=== PATIENT | male | born 1955 | race Caucasian/White ===

== ENCOUNTER → 2016-10-01 | Outpatient (CLI) | payer BC, OTHER ==
[2016-10-01 10:24] LABS: ALBUMIN 3.9 GM/DL (3.2-5.2); ALBUMIN/GLOBULIN RATIO 1.34 (1.00-1.93); ALKALINE PHOSPHATASE 125 U/L (45-117); ALT/SGPT 69 U/L (12-78); ANION GAP 10 MEQ/L (8-16); AST/SGOT 19 U/L (15-37); BILIRUBIN,TOTAL 0.9 MG/DL (0.2-1.0); BLOOD UREA NITROGEN 20 MG/DL (7-18); CALCIUM LEVEL 9.1 MG/DL (8.5-10.1); CARBON DIOXIDE LEVEL 25 MEQ/L (21-32); CHLORIDE LEVEL 106 MEQ/L (98-107); CREATININE FOR GFR 1.01 MG/DL (0.70-1.30); GLOMERULAR FILTRATION RATE > 60.0 (>56); GLUCOSE, FASTING 145 MG/DL (70-105); POTASSIUM SERUM 4.4 MEQ/L (3.5-5.1); SODIUM LEVEL 141 MEQ/L (136-145); TOTAL PROTEIN 6.8 GM/DL (6.4-8.2)
== END ==
LOC: M SMT 08:08
PROVIDERS: ATTEND Physician Assistant
DX: E66.09 Other obesity due to excess calories (principal)

== ENCOUNTER → 2016-11-27 | Outpatient (CLI) | payer BC, OTHER ==
--- NOTE | 2016-11-27 16:24 | REP ---
CERVICAL SPINE, SEVEN VIEWS: HISTORY: Right arm numbness. COMPARISON: 08/06/2004 The cervical spine is visualized from C1 to the C6-7 level in the lateral radiographs. There is no acute fracture or subluxation. The C5-6 and C6-7 intervertebral discs are decreased in height consistent with disc degeneration. Osteophytes are presents on C5 and 6. The neural foramina are poorly visualized. IMPRESSION: Degenerative change as described above. Signed by Miguel Holland MD 11/27/2016 04:25 P
== END ==
LOC: M SMT 13:23
PROVIDERS: ATTEND Physician Assistant
DX: M50.122 Cervical disc disorder at C5-C6 level with radiculopathy (principal)

== ENCOUNTER → 2016-12-04 | Outpatient (CLI) | payer BC, OTHER ==
--- NOTE | 2016-12-04 12:59 | REP ---
MR CERVICAL SPINE WITHOUT CONTRAST: HISTORY: Right arm numbness. COMPARISON: 09/12/2004. A disc bulge is present at the C3-4 level. There is moderate effacement of the thecal sac without spinal cord compression. Bilateral uncinate process hypertrophy is present. This produces moderate narrowing of the C3 neural foramina. A disc bulge and small central disc protrusion are present at the C4-5 level. There is moderate effacement of the thecal sac without spinal cord compression. Bilateral uncinate process hypertrophy is present. This produces moderate narrowing of the C4 neural foramina. A disc bulge and mild size left paracentral disc extrusion are present at the C5-6 level. There is mild spinal cord compression. Bilateral uncinate process hypertrophy is present. This produces moderate narrowing of the C5 neural foramina. A disc bulge and right paracentral and intraforaminal disc protrusion are present at the C6-7 level. There is minimal spinal cord compression. Bilateral uncinate process hypertrophy is present. There is moderate narrowing of the C6 neural foramina. There is no other disc bulge or herniation. The remaining neural foramina are patent. The spinal cord is normal in signal intensity. The C3-4 through C6-7 intervertebral discs are decreased in height consistent with disc degeneration. Normal signal intensity is present in the cervical vertebral bodies. IMPRESSION: There is cervical spondylolysis at the C3-4 through C6-7 levels most significant at the C5-6 and C6-7 levels where there is mild and minimal spinal cord compression respectfully. Findings at the C3-4 level , disc protrusion at the C5-6 level and spinal cord compression are new compared to the previous study. Signed by Miguel Holland MD 12/04/2016 01:04 P
== END ==
LOC: M RAD 10:11
PROVIDERS: ATTEND Physician Assistant
DX: M47.892 Other spondylosis, cervical region (principal); M48.02 Spinal stenosis, cervical region; M50.21 Other cervical disc displacement, high cervical region

== ENCOUNTER → 2017-01-01 | Outpatient (CLI) | payer BC, OTHER ==
[2017-01-01 13:46] LABS: ALBUMIN 3.6 GM/DL (3.2-5.2); ALKALINE PHOSPHATASE 98 U/L (45-117); ALT/SGPT 43 U/L (12-78); ANION GAP 6 MEQ/L (8-16); AST/SGOT 15 U/L (15-37); BILIRUBIN,TOTAL 0.7 MG/DL (0.2-1.0); BLOOD UREA NITROGEN 24 MG/DL (7-18); CALCIUM LEVEL 8.9 MG/DL (8.5-10.1); CARBON DIOXIDE LEVEL 26 MEQ/L (21-32); CHLORIDE LEVEL 111 MEQ/L (98-107); CHOLESTEROL LEVEL 146 MG/DL (<200); CREATININE FOR GFR 0.96 MG/DL (0.70-1.30); GLOMERULAR FILTRATION RATE > 60.0 (>56); GLUCOSE, FASTING 120 MG/DL (70-105); POTASSIUM SERUM 4.4 MEQ/L (3.5-5.1); SODIUM LEVEL 143 MEQ/L (136-145); TOTAL PROTEIN 6.6 GM/DL (6.4-8.2); TRIGLYCERIDES LEVEL 66 MG/DL (<150)
[2017-01-01 13:52] LABS: EOS # 0.2 K/mm3 (0.0-0.50); EOS % 3.8 % (0.0-3.0); LARGE UNSTAINED CELL # 0.1 K/mm3 (0.0-0.4); LARGE UNSTAINED CELL % 1.4 % (0.0-4.0); LYMPH # 1.3 K/mm3 (1.5-4.5); LYMPH % 26.7 % (24.0-44.0); MEAN CORPUSCULAR HEMOGLOBIN 29.8 pg (27.0-33.0); MEAN CORPUSCULAR HGB CONC 33.5 g/dl (32.0-36.5); MEAN CORPUSCULAR VOLUME 89.1 fl (80.0-96.0); MONO # 0.2 K/mm3 (0.0-0.8); MONO % 5.2 % (0.0-5.0); NEUTROPHILS # 2.9 K/mm3 (1.8-7.7); NEUTROPHILS % 61.9 % (36.0-66.0); PLATELET COUNT, AUTOMATED 155 k/mm3 (150-450); RED CELL DISTRIBUTION WIDTH 12.7 % (11.5-14.5); WHITE BLOOD COUNT 4.7 K/mm3 (4.0-10.0)
== END ==
LOC: M SMT 08:08
PROVIDERS: ATTEND Family Medicine
DX: Z12.5 Encounter for screening for malignant neoplasm of prostate (principal); E78.00 Pure hypercholesterolemia, unspecified; E11.65 Type 2 diabetes mellitus with hyperglycemia
CPT/HCPCS: 36415; 80053; 80061; 82043; 83036; 85025; G0103

== ENCOUNTER → 2018-05-06 | Outpatient (REF) | payer OTHER | LOC: M LAB REF 17:14 | DX: C44.609 Unspecified malignant neoplasm of skin of left upper limb, including shoulder (principal); C44.40 Unspecified malignant neoplasm of skin of scalp and neck ==

== ENCOUNTER → 2018-10-12 | Outpatient (REF) | payer OTHER | LOC: M SFHCPLAZ 11:07 | PROVIDERS: ATTEND Dermatology | DX: L82.1 Other seborrheic keratosis (principal); L98.8 Other specified disorders of the skin and subcutaneous tissue ==

== ENCOUNTER → 2018-12-09 | Outpatient (CLI) | payer BC, OTHER ==
[~2018-12-09] MED LIST: ASPI81TA26 PO; ATOR40TA75 PO; CARI1TAB7 PO; CARV6.25 PO; DICL13PA TOP; GABA-843 PO; GABA-845 PO; HYDR-2808 PO; JANU100T PO; LOSA50TA88 PO; MEDR4TAB PO; METF500T13 PO; NAPR-885 PO; OXYC1TAB23 PO; PERCOCET PO; TIZA2TAB4 PO; TIZA4TAB4 PO
--- NOTE | 2018-12-26 23:36 | ECWPNPC ---
PATIENT NAME: RAKEL TRACEY : 1955 GENDER: MALE VISIT DATE: 12/09/2018 DISCHARGE DATE: 12/09/18912 VISIT LOCKED DATE TIME: PHYSICIAN: MARLENY PICHARDO MD RESOURCE: MARLENY PICHARDO MD REASON FOR APPOINTMENT 1. LBP/LEG PAIN HISTORY OF PRESENT ILLNESS NEW PATIENT CONSULT: WHEN DID YOUR PAIN FIRST START? . BRIEFLY DESCRIBE HOW YOUR PAIN STARTED? . HOW DOES YOUR PAIN CHANGE WITH TIME? . DOES YOUR PAIN AWAKEN YOU FROM SLEEP? . HOW MANY HOURS OF SLEEP DO YOU NORMALLY GET? . ANY DIAGNOSTIC TESTING? . FACILITY WHERE TESTS WERE DONE? ____. PAIN TREATMENT TREATMENT YES CANCER HAVE YOU EVER HAD ANY TYPE OF CANCER?NO NO. 63 YEAR OLD MALE PATIENT WITH A HISTORY OF CHRONIC LOW BACK AND LEG PAIN. THE PATIENT DESCRIBES THE PAIN ACHING, BURNING, STABBING, SHOOTING, SORE, TENDER, SHARP, AND CONTINUOUS WITH A PAIN SCORE OF 9-10/10 DEPENDING ON PHYSICAL ACTIVITY. THE PATIENT STATES HE HAS BEEN EXPERIENCING THIS PAIN FOR MORE THAN 6 MONTHS, BUT THE PAIN HAS BECOME WORSE OVER THE LAST SEVERAL WEEKS. THE PATIENT SAYS HE IS HAVING DIFFICULTY WALKING, SLEEPING, AND CANNOT WORK DUE TO THE PAIN. THE PATIENT SAYS HE HAS TRIED VARIOUS MEDICATIONS BUT HAS ONLY EXPERIENCED MINIMAL RELIEF. PATIENT DENIES UNEXPLAINABLE WEIGHT LOSS, FEVER, CHILLS, NEW CHANGES ON HIS URINARY OR BOWEL CONTROL. PAIN SCREENING: PATIENT HAS A COMPLAINT OF ACUTE OR CHRONIC PAIN :YES FALL RISK SCREENING: SCREENING : NO FALLS IN THE PAST YEAR. HORTA INVENTORY: QUESTIONNAIRE ASSESSEDTBD SCORE VALUE CALCULATED TBD CURRENT MEDICATIONS TAKING MELOXICAM 15 MG TABLET 1 TABLET ORALLY ONCE A DAY TAKING GABAPENTIN 300 MG CAPSULE DIRECTED ORALLY TAKING METFORMIN HCL ER 500 MG TABLET EXTENDED RELEASE 24 HOUR 2 TABLET WITH EVENING MEAL ORALLY BID TAKING LOSARTAN POTASSIUM 50 MG TABLET 1 TABLET ORALLY ONCE A DAY TAKING ASPIR-81 81 MG TABLET DELAYED RELEASE 1 TABLET ORALLY ONCE A DAY TAKING JANUVIA 100 MG TABLET 1 TABLET ORALLY ONCE A DAY TAKING ATORVASTATIN CALCIUM 40 MG TABLET 1 TABLET ORALLY ONCE A DAY TAKING CARVEDILOL 6.25 MG TABLET ORALLY TWICE DAILY MEDICATION LIST REVIEWED AND RECONCILED WITH THE PATIENT PAST MEDICAL HISTORY DIABETES MELLITUS 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 SURGICAL HISTORY CATARACT FAMILY HISTORY FATHER: MOTHER: SIBLINGS: ALIVE SON(S): ALIVE DAUGHTER(S): ALIVE 6 BROTHER(S) , 4 SISTER(S) - HEALTHY. 1 SON(S) , 2 DAUGHTER(S) - HEALTHY. DENIES ANY FAMILY HX OR PANCREATIC CANCER .MOTHER COLON CANCER , FATHER HEART DISEASE. SOCIAL HISTORY GENERAL: TOBACCO USE ARE YOU A:NONSMOKER OTHERS AT HOME: SPOUSE. HOUSING: OWNS HOME. EDUCATION LEVEL OF EDUCATION:HIGH SCHOOL DIET: NO CONCENTRATED SWEETS.. LANGUAGE LANGUAGES SPOKEN:FILIPINO DOMESTIC VIOLENCE DO YOU FEEL SAFE IN YOUR ENVIRONMENT?YES RECREATIONAL DRUG USE DRUG USE?NO EXERCISE: WALKS VERY ACTIVE BUT NO REGUALR EXERCISE. PAIN CLINIC PFS, CLERGY, PUBLIC HEALTH REFERRALS PFS REFERRAL NEEDED?NO CLERGY REFERRAL NEEDED?NO PUBLIC HEALTH REFERRAL NEEDED?NO WAS THE PROVIDER NOTIFIED OF ANY PERTINENT INFO?NO HAS THE PATIENT BEEN EDUCATED REGARDING HIS/HER PLAN OF CARE?YES HAS THE PATIENT BEEN EDUCATED REGARDING PAIN, THE RISK FOR PAIN, THE IMPORTANCE OF EFFECTIVE PAIN MANAGEMENT, AND THE PAIN ASSESSMENT PROCESS?YES CAFFEINE CAFFEINE USE?NO ADVANCE DIRECTIVE ADVANCE DIRECTIVE DISCUSSED WITH PATIENT:YES OFFERED PRINTED MATERIAL PT DECLINED BUDDHIST BUDDHIST NO PREFERENCE MARITAL STATUS: . 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 HOSPITALIZATION/MAJOR DIAGNOSTIC PROCEDURE KIDNEY STONE 1983 REVIEW OF SYSTEMS REVIEWED BY: PROVIDER: MARLENY PICHARDO MD . CONSTITUTIONAL: ANY CHANGE IN YOUR MEDICAL CONDITION? NEW BACK PAIN DOWN RIGHT LEG . CHILLS NO . FEVER NO . INFECTION: DO YOU HAVE NEW INFECTIONS? NO . DO YOU HAVE HISTORY OF MRSA? NO . MUSCULOSKELETAL: ANY NEW PATTERNS OF PAIN OR NUMBNESS? INCREASED PAIN DOWN RIGHT LEG . SYTEMIC LUPUS NO . GASTROENTEROLOGY: ANY NEW CHANGE IN BOWEL CONTROL? NO . BARRETTS ESOPHAGUS NO . CIRRHOSIS NO . HEPATITIS NO . LIVER FAILURE NO . ACID REFLUX NO . UNEXPLAINED WEIGHT LOSS NO . GENITOURINARY: ANY NEW CHANGE IN BLADDER CONTROL? NO . IS THERE A CHANCE YOU COULD BE ? NO . HEMATOLOGY/LYMPH: DO YOU TAKE ANY BLOOD THINNERS? (FOR EXAMPLE- COUMADIN, PLAVIX, AGGRENOX, PLATEL, PRADAXA, OR XARELTO) NO . WHEN WAS YOUR LAST DOSE? DATE: TIME: . LOW PLATELET COUNT NO . SICKLE CELL DISEASE NO . VON WILLIEBRANDS NO . FACTOR V LEIDEN NO . THALLASEMIA NO . ANEMIA NO . EASY BRUISING NO . NEUROLOGY: HAVE YOU FALLEN IN THE PAST 12 MONTHS? NO . ANY NEW EXTREMITY NUMBNESS OR WEAKNESS? NO . HEAD INJURY NO . DEMENTIA NO . CEREBRAL PALSY NO . MULTIPLE SCLEROSIS NO . DIZZINESS NO . HEADACHE NO . STROKES NO . VERTIGO NO . CARDIOLOGY: DO YOU HAVE A PACEMAKER OR DEFIBRILLATOR? NO . ANGINA NO . HEART ATTACK NO . HEART SURGERY NO . CONGESTIVE HEART FAILURE/FLUID OVERLOAD NO . CHEST PAIN NO . HIGH BLOOD PRESSURE NO . IRREGULAR HEART BEAT NO . RESPIRATORY: HAVE YOU BEEN SICK IN THE PAST WEEK? NO . FEVER NO . FLU LIKE SYMPTOMS? NO . CPAP NO . BYPAP NO . ASTHMA NO . EMPHYSEMA NO . CHRONIC LUNG DISEASES NO . SHORTNESS OF BREATH ON EXERTION NO . DO YOU USE ANY TYPE OF TOBACCO (SMOKE, SMOKELESS, CHEW)? NO . COUGH NO . SNORING NO . INTEGUMENTARY: DO YOU HAVE ANY RASHES OR OPEN SORES? NO . ALLERGIC/IMMUNO: ARE YOU ALLERGIC TO IV DYE? NO . ANY NEW ALLERGIES? NO . PSYCHIATRIC: DO YOU HAVE THOUGHTS OF HURTING YOURSELF OR SOMEONE ELSE? NO . ARE YOU ABUSED, NEGLECTED, OR IN AN UNSAFE ENVIRONMENT? NO . ENDOCRINOLOGY: ARE YOU DIABETIC? YES . THYROID DISORDER NO . OTHER: DO YOU NEED ANY PRESCRIPTIONS? NO . IF YES, PLEASE LIST: ____ . ANY NEW PROBLEMS WITH YOUR MEDICATIONS? NO . WHEN DID YOU LAST EAT? ____ . WHEN DID YOU LAST DRINK? ____ . WHAT DID YOU LAST DRINK? ____ . NAME OF PERSON DRIVING YOU HOME? ____ . DO YOU HAVE ANY OTHER QUESTIONS OR CONCERNS NO . VITAL SIGNS WT 276 LBS, HT 75 IN, BMI 34.49 INDEX, BP 165/78 MM HG, HR 60 /MIN, RR 20 /MIN, TEMP 99.2 F, OXYGEN SAT % 98%, NA INITIALS SC 15:28, REVIEWED BY: KG. EXAMINATION GENERAL EXAMINATION: PATIENT IS ALERT O X 3 AND COOPERATIVE. LUNGS CLEAR, TO AUSCULTATION. HEART: NO MURMURS OR GALLOPS; FACIAL CRANIAL NERVES ARE GROSSLY NORMAL. GOOD SYMMETRY OF FACIAL MUSCLE MOVEMENT. NORMAL VISUAL SHAW. THE PATIENT APPEARS UNCOMFORTABLE AND OFTEN CHANGES HIS POSITION TO FIND A COMFORTABLE POSTURE. ANTALGIC GAIT AND LIMPING FROM THE RIGHT LEG. RIGHT LEG IS WEAKER AT EXTENSION AND FLEXION. STRAIGHT LEG RAISE OF THE RIGHT LEG IS POSITIVE AT 30 DEGREES FOR RADICULOPATHY. MRI OF THE LUMBAR SPINE DONE ON 12/04/2018 SHOWS BULGING DISCS AT L4-L5 AND COMPRESSION AT L4 LEVEL. 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 TRACEY' PAIN MANAGEMENT CASE. DUE TO THE LUMBAR RADICULOPATHY, I WOULD LIKE TO MOVE FORWARD WITH A LUMBAR EPIDURAL STEROID INJECTION AT THIS TIME. PATIENT WOULD LIKE TO MOVE FORWARD WITH IV SEDATION DUE TO DISCOMFORT, PAIN AND ANXIETY ASSOCIATED WITH THE PROCEDURE. WE DISCUSSED THE BENEFITS, RISKS, AND ALTERNATIVES OF THE INJECTION AND THE PATIENT WOULD LIKE TO PROCEED. I WILL INCREASE THE GABAPENTIN TO 3 TABLETS PER DAY TO BE USED LONG-TERM USE. I ALSO WILL PRESCRIBE A SMALL SUPPLY OF SOMA, TORADOL, AND HYDROCODONE TO BE USED UNTIL THE EPIDURAL. ISTOP _#[id number] WAS REVIEWED. I DISCUSSED THE RISKS ASSOCIATED WITH THE USE OF OPIOIDS INCLUDING THE POSSIBLE DEVELOPMENT OF ADDICTION OR TOLERANCE AND THE PATIENT VERBALIZED UNDERSTANDING. THE PATIENT WILL FOLLOW UP IN 3 WEEKS AFTER THE PROCEDURE. INSTRUCTIONS WERE GIVEN, QUESTIONS WERE ANSWERED, PATIENT REPORTS UNDERSTANDING AND AGREES WITH THE PLAN. I, CHARLEEN TOM, DOCUMENTED THE ABOVE INFORMATION ACTING A SCRIBE FOR DR. PICHARDO. I HAVE REVIEWED THE ABOVE DOCUMENT, WRITTEN BY CHARLEEN THOMAS AND I VERIFY THAT IT IS ACCURATE. DEAR DR. KALI PRECIADO, D.O.:THANK YOU FOR YOUR KIND REFERRAL OF MR. TRACEY. IF YOU WANT TO DISCUSS HIS CASE WITH ME PLEASE CALL ME AT THE PAIN CENTER AT [phone]. SINCERELY,[facility]. OTHERS START CARISOPRODOL TABLET, 350 MG, 1 TABLET NEEDED, ORALLY, EVERY 8 HOURS NEEDED MDD3, 7 DAYS, 20, REFILLS 0 START KETOROLAC TROMETHAMINE TABLET, 10 MG, 1 TABLET WITH FOOD OR MILK NEEDED, ORALLY, EVERY 6 HRS MDD4, 5 DAY(S), 20, REFILLS 0 START HYDROCODONE-ACETAMINOPHEN TABLET, 5-300 MG, 1 TABLET NEEDED, ORALLY FOR PAIN, EVERY 12 HRS MDD2, 7 DAYS, 14, REFILLS 0 REFILL GABAPENTIN CAPSULE, 300 MG, DIRECTED, ORALLY FOR PAIN, TID, 30 DAYS, 90, REFILLS 1 NOTES: WHAT IS LUMBAR EPIDURAL INJECTION? MATERIAL WAS PRINTED, REVIEWED AND GIVEN TO PT. EM. PROCEDURE CODES G8427 CURRENT MEDS W/DOSAGES DOCUMENTED G8730 PAIN ASSESS POS TOOL F/U PLAN DOC FA211 ESTABILISHED PATIENT [facility] CHARGE DISPOSITION & COMMUNICATION FOLLOW UP 3 WEEKS ELECTRONICALLY SIGNED BY MARLENY PICHARDO MD, MD ON 12/26/2018 AT 08:03 PM EDT DISCLAIMER : THIS IS A VISIT SUMMARY EXTRACTED FROM THE [employer] CHART. IT IS NOT A COPY OF THE [employer] PROGRESS NOTE. MTDD
== END ==
LOC: M PAIN 15:30
PROVIDERS: ATTEND Anesthesiology
DX: M51.16 Intervertebral disc disorders with radiculopathy, lumbar region (principal); M51.17 Intervertebral disc disorders with radiculopathy, lumbosacral region; G89.29 Other chronic pain; E11.9 Type 2 diabetes mellitus without complications; I10 Essential (primary) hypertension; Z79.84 Long term (current) use of oral hypoglycemic drugs; Z79.82 Long term (current) use of aspirin; Z79.899 Other long term (current) drug therapy

== ENCOUNTER → 2018-12-15 | Outpatient (CLI) | payer BC, OTHER ==
[~2018-12-15] MED LIST changes: +ISOVUE-M 300 61% 15ML VIAL (Q9967) As Ordered ONE; +LIDOCAINE 1% SDV INJ 30 ML VIAL As Ordered ONE; +MIDAZOLAM INJ 2 MG/2 ML VIAL (J2250) As Ordered ONE; +fentaNYL 100 MCG/2 ML INJECTION (J3010) As Ordered ONE; +methylPREDNISolone SUSP 40 MG/ML (DEPO-medrol) VIAL (J1030) As Ordered ONE
--- NOTE | 2018-12-16 09:06 | REP ---
Partial lumbar spine series: Three views . History: Injection procedure for pain. 15 seconds of fluoroscopy time is reported. Findings: A sequence of three fluoroscopically obtained last image hold procedural spot radiographs of the lumbar spine document needle position and contrast injection associated with injection procedure. Electronically Signed by Lul Andre MD 12/16/2018 08:57 A
--- NOTE | 2019-01-01 23:21 | ECWPNPC ---
PATIENT NAME: RAKEL TRACEY : 1955 GENDER: MALE VISIT DATE: 12/15/2018 DISCHARGE DATE: 12/15/181843 VISIT LOCKED DATE TIME: PHYSICIAN: MARLENY PICHARDO MD RESOURCE: MARLENY PICHARDO MD REASON FOR APPOINTMENT 1. LESJ WITH IV SEDATION HISTORY OF PRESENT ILLNESS HISTORY OF PRESENT ILLNESS: PAIN THE PATIENT DESCRIBES THE PAIN... FALL RISK SCREENING: SCREENING :NO FALLS REPORTED IN THE LAST YEAR CURRENT MEDICATIONS TAKING MELOXICAM 15 MG TABLET 1 TABLET ORALLY ONCE A DAY, NOTES: 12/08/18 TAKING METFORMIN HCL ER 500 MG TABLET EXTENDED RELEASE 24 HOUR 2 TABLET WITH EVENING MEAL ORALLY BID, NOTES: 12/14/181899 TAKING LOSARTAN POTASSIUM 50 MG TABLET 1 TABLET ORALLY ONCE A DAY, NOTES: 12/15/18699 TAKING ASPIR-81 81 MG TABLET DELAYED RELEASE 1 TABLET ORALLY ONCE A DAY, NOTES: 12/15/18699 TAKING JANUVIA 100 MG TABLET 1 TABLET ORALLY ONCE A DAY, NOTES: 12/14/181899 TAKING ATORVASTATIN CALCIUM 40 MG TABLET 1 TABLET ORALLY ONCE A DAY, NOTES: 12/14/181899 TAKING CARVEDILOL 6.25 MG TABLET ORALLY TWICE DAILY, NOTES: 12/15/18699 TAKING CARISOPRODOL 350 MG TABLET 1 TABLET NEEDED ORALLY EVERY 8 HOURS NEEDED MDD3, NOTES: 12/13/18 TAKING KETOROLAC TROMETHAMINE 10 MG TABLET 1 TABLET WITH FOOD OR MILK NEEDED ORALLY EVERY 6 HRS MDD4, NOTES: 12/13/18 TAKING HYDROCODONE-ACETAMINOPHEN 5-300 MG TABLET 1 TABLET NEEDED ORALLY FOR PAIN EVERY 12 HRS MDD2, NOTES: 12/15/18 09 TAKING GABAPENTIN 300 MG CAPSULE DIRECTED ORALLY FOR PAIN TID, NOTES: 12/15/18 07 MEDICATION LIST REVIEWED AND RECONCILED WITH THE PATIENT PAST MEDICAL HISTORY DIABETES MELLITUS 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 SURGICAL HISTORY CATARACT FAMILY HISTORY FATHER: MOTHER: SIBLINGS: ALIVE SON(S): ALIVE DAUGHTER(S): ALIVE 6 BROTHER(S) , 4 SISTER(S) - HEALTHY. 1 SON(S) , 2 DAUGHTER(S) - HEALTHY. DENIES ANY FAMILY HX OR PANCREATIC CANCER .MOTHER COLON CANCER , FATHER HEART DISEASE. SOCIAL HISTORY GENERAL: TOBACCO USE ARE YOU A:NONSMOKER OTHERS AT HOME: SPOUSE. HOUSING: OWNS HOME. EDUCATION LEVEL OF EDUCATION:HIGH SCHOOL DIET: NO CONCENTRATED SWEETS.. LANGUAGE LANGUAGES SPOKEN:GEORGIAN DOMESTIC VIOLENCE DO YOU FEEL SAFE IN YOUR ENVIRONMENT?YES RECREATIONAL DRUG USE DRUG USE?NO EXERCISE: WALKS VERY ACTIVE BUT NO REGUALR EXERCISE. PAIN CLINIC PFS, CLERGY, PUBLIC HEALTH REFERRALS PFS REFERRAL NEEDED?NO CLERGY REFERRAL NEEDED?NO PUBLIC HEALTH REFERRAL NEEDED?NO WAS THE PROVIDER NOTIFIED OF ANY PERTINENT INFO?NO HAS THE PATIENT BEEN EDUCATED REGARDING HIS/HER PLAN OF CARE?YES HAS THE PATIENT BEEN EDUCATED REGARDING PAIN, THE RISK FOR PAIN, THE IMPORTANCE OF EFFECTIVE PAIN MANAGEMENT, AND THE PAIN ASSESSMENT PROCESS?YES LATEX QUESTIONNAIRE LATEX ALLERGY : HAVE YOU EVER DEVELOPED ANY TYPE OF REACTION AFTER HANDLING LATEX PRODUCTS SUCH RUBBER GLOVES, CONDOMS, DIAPHRAGMS, BALLOONS, SOCKS, OR UNDERWEAR?NO LATEX ALLERGY : HAVE YOU EVER DEVELOPED ANY TYPE OF REACTION DURING OR AFTER DENTAL APPOINTMENT, VAGINAL/RECTAL EXAMINATION, SURGICAL PROCEDURE, OR ANY OTHER EXPOSURE?NO LATEX RISK : HAVE YOU EVER HAD ANY DIFFICULTY BREATHING OR HIVES AFTER EATING OR HANDLING ANY FRUITS, OR VEGETABLES; SUCH KIWI, BANANAS, STONE FRUITS, OR CHESTNUTSNO LATEX RISK : DO YOU HAVE A PREVIOUS PERSONAL HISTORY OF MORE THAN NINE SURGERIES, SPINA BIFIDA, OR REPEATED CATHERTIZATIONS? NO LATEX RISK : ARE YOU FREQUENTLY EXPOSED TO LATEX PRODUCTS IN YOUR OCCUPATION?NO DATE ASKED : 12/15/2018 CAFFEINE CAFFEINE USE?NO ADVANCE DIRECTIVE ADVANCE DIRECTIVE DISCUSSED WITH PATIENT:YES PATIENT DECLINED HCP INFORMATION. VOODOO VOODOO NO PREFERENCE MARITAL STATUS: . ALCOHOL SCREENING DID YOU HAVE A DRINK CONTAINING ALCOHOL IN THE PAST YEAR?YES POINTS1 INTERPRETATIONNEGATIVE HOW OFTEN DID YOU HAVE A DRINK CONTAINING ALCOHOL IN THE PAST YEAR?MONTHLY OR LESS (1 POINT) HOW MANY DRINKS DID YOU HAVE ON A TYPICAL DAY WHEN YOU WERE DRINKING IN THE PAST YEAR?1 OR 2 (0 POINTS) HOW OFTEN DID YOU HAVE SIX OR MORE DRINKS ON ONE OCCASION IN THE PAST YEAR?NEVER (0 POINTS) OCCUPATION: [employer]. REVIEWED WITH PATIENT 12/15/18 9330 JS. HOSPITALIZATION/MAJOR DIAGNOSTIC PROCEDURE KIDNEY STONE 1983 REVIEW OF SYSTEMS REVIEWED BY: PROVIDER: . CONSTITUTIONAL: ANY CHANGE IN YOUR MEDICAL CONDITION? NO . CHILLS NO . FEVER NO . INFECTION: DO YOU HAVE NEW INFECTIONS? NO . DO YOU HAVE HISTORY OF MRSA? NO . MUSCULOSKELETAL: ANY NEW PATTERNS OF PAIN OR NUMBNESS? YES, WORSENING PROGRESSIVELY . GASTROENTEROLOGY: ANY NEW CHANGE IN BOWEL CONTROL? YES, STATES CONSTIPATION, NO BM SINCE LAST THURSDAY . GENITOURINARY: ANY NEW CHANGE IN BLADDER CONTROL? YES, STATES DIFFICULY GOING RECENTLY . IS THERE A CHANCE YOU COULD BE ? NO . HEMATOLOGY/LYMPH: DO YOU TAKE ANY BLOOD THINNERS? (FOR EXAMPLE- COUMADIN, PLAVIX, AGGRENOX, PLATEL, PRADAXA, OR XARELTO) NO . WHEN WAS YOUR LAST DOSE? DATE: TIME: . NEUROLOGY: HAVE YOU FALLEN IN THE PAST 12 MONTHS? NO . ANY NEW EXTREMITY NUMBNESS OR WEAKNESS? YES, STATES NUMBNESS AND WEAKNESS TO RIGHT LEG . CARDIOLOGY: DO YOU HAVE A PACEMAKER OR DEFIBRILLATOR? NO . RESPIRATORY: HAVE YOU BEEN SICK IN THE PAST WEEK? NO . FEVER NO . FLU LIKE SYMPTOMS? NO . COUGH NO . INTEGUMENTARY: DO YOU HAVE ANY RASHES OR OPEN SORES? NO . ALLERGIC/IMMUNO: ARE YOU ALLERGIC TO IV DYE? NO . ANY NEW ALLERGIES? NO . PSYCHIATRIC: DO YOU HAVE THOUGHTS OF HURTING YOURSELF OR SOMEONE ELSE? NO . ARE YOU ABUSED, NEGLECTED, OR IN AN UNSAFE ENVIRONMENT? NO . ENDOCRINOLOGY: ARE YOU DIABETIC? YES, DOES NOT DO FSBS AT HOME . OTHER: DO YOU NEED ANY PRESCRIPTIONS? NO . IF YES, PLEASE LIST: ____ . ANY NEW PROBLEMS WITH YOUR MEDICATIONS? NO . WHEN DID YOU LAST EAT? ____12/15/18 0700 . WHEN DID YOU LAST DRINK? ____12/15/18 0900 . WHAT DID YOU LAST DRINK? ____WATER . NAME OF PERSON DRIVING YOU HOME? ____NELLIE . DO YOU HAVE ANY OTHER QUESTIONS OR CONCERNS YES, STATES THAT THE PAIN MEDS PRESCRIBED ON 12/09 DIDN'T HELP THE PAIN AT ALL. STATES HE CAN'T EVEN WALK AT THIS POINT. DR. PICHARDO MADE AWARE . VITAL SIGNS WT 276 LBS, HT 75 IN, BMI 34.49 INDEX, BP 119/70 MM HG, HR 65 /MIN, RR 20 /MIN, TEMP 98.2 F, OXYGEN SAT % 94%, SAFE IN ENV? (Y/N) YES, NA INITIALS SC 14:09, REVIEWED BY: MIKE. ASSESSMENTS INTERVERTEBRAL DISC DISORDER WITH RADICULOPATHY OF LUMBAR REGION - M51.16 (PRIMARY) TREATMENT INTERVERTEBRAL DISC DISORDER WITH RADICULOPATHY OF LUMBAR REGION REFILL HYDROCODONE-ACETAMINOPHEN TABLET, 5-300 MG, 1 TABLET NEEDED, ORALLY FOR PAIN, EVERY 6 HRS MDD4, 7 DAYS, 28, REFILLS 0, NOTES: 12/15/18 0900 [facility] FLUORO GUIDE SPINE INJECTION (PAIN)[id number] PROCEDURES PRE PROCEDURE DIAGNOSIS LUMBAR DISC DISORDER WITH RADICULOPATHY POST PROCEDURE DIAGNOSIS LUMBAR DISC DISORDER WITH RADICULOPATHY PROCEDURE LUMBAR EPIDURAL STEROID INJECTION UNDER FLUOROSCOPIC GUIDANCE SURGEON DR. MARLENY PICHARDO STEEL CHIPPER NONE ANESTHESIA LOCAL WITH IV SEDATION PRE PROCEDURE NOTE THE PATIENT HAS A HISTORY OF CHRONIC LOW BACK PAIN. I EVALUATE THE PATIENT AND REVIEWED THE CHART. I WENT OVER THE RISKS, ALTERNATIVES, AND BENEFITS ASSOCIATED WITH THIS PROCEDURE. THE PATIENT WOULD LIKE TO PROCEED AND GIVE CONSENT TO PERFORMED THE PROCEDURE. PATIENT WOULD LIKE TO MOVE FORWARD WITH IV SEDATION DUE TO DISCOMFORT, PAIN AND ANXIETY ASSOCIATED WITH THE PROCEDURE. THE PATIENT DENIES UNEXPLAINABLE WEIGHT LOSS, FEVER, CHILLS, OR NEW CHANGES IN URINARY OR BOWEL CONTROL. DESCRIPTION OF PROCEDURE THE PATIENT WAS BROUGHT TO THE PROCEDURE ROOM AND PLACED IN THE PRONE POSITION. THE LUMBOSACRAL AREA WAS CLEANED WITH BETADINE SOLUTION AND DRAPED ASEPTICALLY. THE PROCEDURE WAS DONE UNDER STERILE CONDITIONS. I CHECKED LATERALITY AND THE LEVEL WHERE THE PROCEDURE WAS GOING TO BE PERFORMED WITH THE PATIENT AND THE SUPPORTING STAFF AT THE MOMENT OF THE TIME OUT IN THE PROCEDURE ROOM. UNDER FLUOROSCOPIC GUIDANCE, THE TARGET POINT WAS SELECTED AT THE INTERLAMINAR LEVEL OF L4-L5. LIDOCAINE WAS USED TO NUMB THE SKIN AND THE SUBCUTANEOUS TISSUE BELOW IT. EPIDURAL TUOHY NEEDLE, 17-GAUGE, WAS ADVANCED UNDER FLUOROSCOPIC GUIDANCE AND FOLLOWING PATIENT FEEDBACK UNTIL THE EPIDURAL SPACE WAS REACHED, 7 CM DEEP INTO THE SKIN BY THE LOSS OF RESISTANCE TECHNIQUE. ISOVUE M DYE 30%, 0.25 ML, WAS INJECTED SHOWING ADEQUATE SPREAD OF THE DYE. THEN, A SOLUTION OF 3 ML OF NORMAL SALINE WITH DEPO-MEDROL 60 MG WAS INJECTED SLOWLY FOLLOWING PATIENT FEEDBACK. PATIENT RECEIVED VERSED 2 MG AND FENTANYL 300 MCG IV DIVIDED DOSES. THERE WAS NO EVIDENCE OF BLOOD, PARESTHESIA OR CEREBROSPINAL FLUID DURING THE PROCEDURE. THE PATIENT WAS SENT TO THE RECOVERY ROOM. THE PATIENT WAS MOVING THE EXTREMITIES AND DOING WELL. THERE WAS NO COMPLICATION DURING THE PROCEDURE. FLUOROSCOPY TIME WAS 15 SECONDS. FACE TO FACE WAS 16 MINUTES. POST PROCEDURE NOTE THE PATIENT WILL BE SEEN IN A FOLLOW UP IN THE NEXT FEW WEEKS. INSTRUCTIONS WERE GIVEN, QUESTIONS WERE ANSWERED, AND THE PATIENT EXPRESSED UNDERSTANDING AND AGREES WITH THE PLAN. I, DENEEN CROOK, DOCUMENTED THE ABOVE INFORMATION ACTING A SCRIBE FOR DR. PICHARDO. I HAVE REVIEWED THE ABOVE DOCUMENT, WRITTEN BY DENEEN CROOK SCRIBE AND I VERIFY THAT IT IS ACCURATE. PROCEDURE CODES 6045F RADXPS IN END [id number] PXD [id number] LUMBAR/SACRAL W/ IMAGING 37611 MOD SED SAME PHYS/QHP 5/>YRS DISPOSITION & COMMUNICATION FOLLOW UP 2 WEEKS ELECTRONICALLY SIGNED BY MARLENY PICHARDO MD, MD ON 01/01/2019 AT 04:10 PM EDT DISCLAIMER : THIS IS A VISIT SUMMARY EXTRACTED FROM THE [email or web address] CHART. IT IS NOT A COPY OF THE [email or web address] PROGRESS NOTE. MTDD
== END ==
LOC: M PAIN 14:00
PROVIDERS: ATTEND Anesthesiology
DX: M51.16 Intervertebral disc disorders with radiculopathy, lumbar region (principal); E11.9 Type 2 diabetes mellitus without complications; I10 Essential (primary) hypertension; Z79.84 Long term (current) use of oral hypoglycemic drugs; Z79.82 Long term (current) use of aspirin; Z79.899 Other long term (current) drug therapy; Z86.79 Personal history of other diseases of the circulatory system
CPT/HCPCS: 62323; 99152; J1030; J2250; J3010; Q9967

== ENCOUNTER 2018-12-17 12:41 | Inpatient (IN) | payer BC, OTHER ==
[~2018-12-17] VITALS: Ht 190.5 cm; Wt 117.5 kg
[2018-12-17] MEDS ORDERED: GABA-843 PO (12:47)
[2018-12-17] MEDS ORDERED: HYDR-2808 PO (12:47)
[2018-12-17] MEDS ORDERED: METF500T13 PO (12:47)
[2018-12-17] MEDS ORDERED: ASPI81TA26 PO (12:47)
[2018-12-17] MEDS ORDERED: JANU100T PO (12:47)
[2018-12-17] MEDS ORDERED: CARI1TAB7 PO (12:47)
[2018-12-17] MEDS ORDERED: CARV6.25 PO (12:47)
[2018-12-17] MEDS ORDERED: LOSA50TA88 PO (12:47)
[2018-12-17] MEDS ORDERED: ATOR40TA75 PO (12:47)
[2018-12-17] MEDS ORDERED: PERCOCET 5MG/325MG TAB PO ONE (13:45)
[2018-12-17] MEDS ORDERED: NS 1,000 ML IV ONE (14:15)
[2018-12-17 14:46] LABS: BASO % 0.5 % (0.0-1.0); EOS # 0.1 10^3/uL (0.0-0.50); EOS % 0.8 % (0.0-3.0); HEMATOCRIT 46.1 % (42.0-52.0); HEMOGLOBIN 14.8 g/dl (13.5-17.5); LYMPH # 2.4 10^3/uL (1.5-4.5); LYMPH % 31.8 % (24.0-44.0); MEAN CORPUSCULAR HEMOGLOBIN 28.8 pg (27.0-33.0); MEAN CORPUSCULAR HGB CONC 32.1 g/dl (32.0-36.5); MEAN CORPUSCULAR VOLUME 89.9 fl (80.0-96.0); MONO # 0.6 10^3/uL (0.0-0.8); MONO % 7.4 % (0.0-5.0); NEUTROPHILS # 4.4 10^3/uL (1.8-7.7); NEUTROPHILS % 59.1 % (36.0-66.0); PLATELET COUNT, AUTOMATED 203 10^3/uL (150-450); RED BLOOD COUNT 5.13 10^6/uL (4.30-6.10); WHITE BLOOD COUNT 7.5 10^3/uL (4.0-10.0)
[2018-12-17 15:03] LABS: BLOOD UREA NITROGEN 29 MG/DL (7-18); CALCIUM LEVEL 9.2 MG/DL (8.8-10.2); CARBON DIOXIDE LEVEL 30 MEQ/L (21-32); CHLORIDE LEVEL 104 MEQ/L (98-107); CREATININE FOR GFR 1.14 MG/DL (0.70-1.30); GLOMERULAR FILTRATION RATE > 60.0 (>49); GLUCOSE, FASTING 108 MG/DL (70-100); POTASSIUM SERUM 4.7 MEQ/L (3.5-5.1); SODIUM LEVEL 139 MEQ/L (136-145)
[2018-12-17] MEDS ORDERED: PROHANCE 279.3MG/ML 5ML VIAL (A9576) As Ordered ONE (16:15)
[2018-12-17] MEDS ORDERED: PROHANCE 279.3MG/ML 15ML VIAL (A9576) As Ordered ONE (16:16)
[2018-12-17] MEDS ORDERED: MORPHINE 4 MG/ML 1ML VIAL/SYRINGE (J2270) IV ONE (17:45)
--- NOTE | 2018-12-17 18:20 | REP ---
Emergency lumbar spine MRI study without and with IV gadolinium: History: Right leg pain and weakness. Status post epidural. Incontinence. Comparison lumbar spine MRI study is from December 04, 2018. Intraprocedural spot radiographs from December 15, 2018 demonstrate epidural needle position just to the right of midline at the L4-5 interlaminar level. Technique: Sagittal and axial T1 and T2-weighted scans are acquired in the usual fashion with and without fat saturation. Sequences include spin echo, turbo spin-echo, and STIR imaging sequences. Gadolinium enhancement dose is 20 ml of intravenous ProHance. MRI findings: Lumbar vertebral body heights are maintained. Cortical and medullary bone signal intensity are normal. Alignment is normal and unchanged. Conus medullaris is unremarkable. There is no evidence of epidural hematoma or abscess. There is mild disc bulging at L4-5 again noted. Mild facet hypertrophy is noted bilaterally at L4-5. There is a right foraminal disc protrusion at L4-5 producing nerve root compression. This is unchanged from the comparison MRI study of December 04, 2018. There is some adjacent contrast enhancement in the epidural fat surrounding the nerve root on the right at L4-5 and there is mild enhancement in the interspinous soft tissues at the L4-5 level, but no abnormal fluid collection is seen. Bone signal intensity is normal. The posterior paraspinal soft tissues are otherwise unremarkable. Other disc levels are unchanged. Impression: There is no evidence of epidural hematoma or abscess. Right foraminal L4-5 disc protrusion producing nerve root compression again seen. There is mild contrast enhancement in the epidural fat surrounding this and in the extra spinal soft tissues between the L4 and L5 spinous processes dorsal to the spinal canal. No abnormal fluid collection is seen. Electronically Signed by Lul Andre MD 12/17/2018 08:09 P
[2018-12-17] MEDS ORDERED: GLUCAGON FOR INJ 1 MG VIAL (J1610) SC PRN (18:30)
[2018-12-17] MEDS ORDERED: KETOROLAC 30 MG/ML VIAL (J1885) IV ONE (18:30)
[2018-12-17] MEDS ORDERED: HYDROmorphone HCL 2 MG/ML 1ML VIAL (J1170) IV PRN (18:30)
[2018-12-17] MEDS ORDERED: GLUCOSE 4 GM CHEW TABLET PO PRN (18:30)
[2018-12-17] MEDS ORDERED: DEXTROSE 50% 50 ML SYRINGE IV PRN (18:30)
[2018-12-17] MEDS ORDERED: HYDROMORPHONE HCL 0.5 MG/ 0.5 ML SYRINGE (J1170 PER 1) IV PRN (18:30)
[2018-12-17] MEDS ORDERED: PILL CRUSHER/CUTTER 1 EACH XX PRN (18:45)
[2018-12-17] MEDS ORDERED: ONDANSETRON 4MG/2ML VIAL (J2405) IV PRN (19:15)
--- NOTE | 2018-12-17 19:17 | HPEPDOC ---
General Date of Admission 12/17/18 Chief Complaint The patient is a 63-year-old male admitted with a reason for visit of R Leg Problem. Source: Patient, Family, Old records Exam Limitations: No limitations Severity: Moderate History of Present Illness 63 year old male with diabetes and hypertension has been having right groin, buttock pain radiating down the right leg from the beginning of November. He had a outpateint MRI for this done on 12/04 which showed diffuse disc bulges at L3- 4 and L4-L5 levelswith minimal thecal sac compression. There is compression of the L$ nerve in the neural foramen. There is also diffuse disc bulge at the L5- S1 level . he was diagnosed with Acute lumber radiculopathy. He was started on oral pain meds, muscle relaxsants and gabapentin without any relief so he had an epidural injection done by Dr Lomax on 12/12/18 as an outpateint. However this also did not relief the pain at all. He has been hobbling around and has not been able to stand up straight. the pain is sharp some times burning , sometimes shooting going down his front and medical side of the leg and often his leg is going into spasms. This morning he woke up with his leg bent in a L shape and he could not straighten his leg. He could not get out of bed or bear weight on the leg. He called Dr Lomax and was advised to come to the ED. ED provider contacted Dr Reyes and he advised doubling the oral pain meds if that was not working is suggested IV pain medications. Oral pain med in [facility] ED failed to work so the patient is being admitted to the hospitalist service for pain control. Patient admitted for Acute lumber radiculopathy with intractable pain and inability to ambulate. Home Medications Scheduled Aspirin (Aspirin EC) 81 Mg Tablet., 81 MG PO DAILY, (Reported) Atorvastatin Calcium (Atorvastatin Calcium) 40 Mg Tablet, 40 MG PO QHS, (Repo rted) Carisoprodol (Carisoprodol) 350 Mg Tablet, 350 MG PO Q8H, (Reported) Carvedilol (Carvedilol) 6.25 Mg Tablet, 6.25 MG PO BID, (Reported) Gabapentin (Gabapentin) 300 Mg Capsule, 300 MG PO TID, (Reported) Losartan Potassium (Losartan Potassium) 50 Mg Tablet, 50 MG PO DAILY, (Reported) Metformin HCl (Metformin HCl) 500 Mg Tablet, 500 MG PO BIDWM, (Reported) WITH BREAKFAST AND DINNER Sitagliptin Phosphate (Januvia) 100 Mg Tablet, 100 MG PO DAILY, (Reported) Scheduled PRN Hydrocodone/Acetaminophen (Hydrocodone-Acetamin 5-300 mg) 1 Each Tablet, 1 TAB PO Q6H PRN for PAIN, (Reported) Allergies Coded Allergies: No Known Drug Allergies (Verified Allergy, Unknown, 12/17/18) Past Medical History Medical History Diabetes, hypertension, thoracic Aortic aneurysm found in aug 2018 being monitored. Surgical History cataract surgery, epidural injection Family History Significant Family History: Cancer (mother), Heart disease (father), Other (Dementia monthe, thyroid disease in father) Social History * Smoker: Denies Alcohol: rarely Drugs: denies A-FIB/CHADSVASC A-FIB History Current/History of A-Fib/PAF?: No Review of Systems Constitutional: Denies: Chills, Fever, Night Sweats Eyes: Denies: Pain, Vision change ENT: Denies: Head Aches, Ear Pain, Dysphagia Skin: Denies: Rash, Lesions, Breakdown Pulmonary: Denies: Dyspnea, Cough Cardiovascular: Denies: Chest Pain, Palpitations, Orthopnea, Paroxysmal Noc. Dyspnea, Lt Headedness Gastrointestinal: Denies: Nausea, Vomiting, Abdominal Pain, Diarrhea Genitourinary: Denies: Dysuria, Frequency, Incontinence, Retention Musculoskeletal: Reports: Leg Pain (right), Spasms Neurological: Reports: Weakness (right leg), Numbness (right leg) Psych: Reports: Mood Normal Physical Examination General Exam: Positive: Alert, Cooperative, No Acute Distress Eye Exam: Positive: PERRLA, Conjunctiva & lids normal, EOMI; Negative: Sclera icteric ENT Exam: Positive: Atraumatic, Mucous membr. moist/pink, Pharynx Normal Neck Exam: Positive: Supple; Negative: JVD, thyromegaly Chest Exam: Positive: Clear to auscultation, Normal air movement Heart Exam: Positive: Rate Normal, Regular Rhythm, Normal S1, Normal S2; Negative: Murmurs, Rubs Abdomen Exam: Positive: Normal bowel sounds, Soft; Negative: Tenderness, Hepatospenomegaly Extremity Exam: Positive: Normal pulses; Negative: Clubbing, Cyanosis, Edema Skin Exam: Positive: Nl turgor and temperature; Negative: Breakdown, Lesion Neuro Exam: Positive: Normal Speech, Other (absent DTRs on the right leg, ) Vital Signs Vital Signs Date Time Temp Pulse Resp B/P (MAP) Pulse Ox O2 Delivery O2 Flow Rate FiO2 12/17/18 17:58 20 12/17/18 12:59 12/17/18 12:41 97.0 62 97 Room Air Laboratory Data Labs 24H Laboratory Tests 2 12/17/18 14:22: Immature Granulocyte % (Auto) 0.4, White Blood Count 7.5, Red Blood Count 5.13, Hemoglobin 14.8, Hematocrit 46.1, Mean Corpuscular Volume 89.9, Mean Corpuscular Hemoglobin 28.8, Mean Corpuscular Hemoglobin Concent 32.1, Red Cell Distribution Width 12.9, Platelet Count 203, Neutrophils (%) (Auto) 59.1, Lymphocytes (%) (Auto) 31.8, Monocytes (%) (Auto) 7.4H, Eosinophils (%) (Auto) 0.8, Basophils (%) (Auto) 0.5, Neutrophils # (Auto) 4.4, Lymphocytes # (Auto) 2.4, Monocytes # (Auto) 0.6, Eosinophils # (Auto) 0.1, Basophils # (Auto) 0.0, Nucleated Red Blo od Cells % (auto) 0.0, Anion Gap 5L, Glomerular Filtration Rate > 60.0, Blood Urea Nitrogen 29H, Creatinine 1.14, Sodium Level 139, Potassium Level 4.7, Chloride Level 104, Carbon Dioxide Level 30, Calcium Level 9.2 CBC/BMP Laboratory Tests 12/17/18 14:22 Red Blood Count 5.13, Mean Corpuscular Volume 89.9, Mean Corpuscular Hemoglobin 28.8, Mean Corpuscular Hemoglobin Concent 32.1, Red Cell Distribution Width 12.9, Neutrophils (%) (Auto) 59.1, Lymphocytes (%) (Auto) 31.8, Monocytes (%) (Auto) 7.4 H, Eosinophils (%) (Auto) 0.8, Basophils (%) (Auto) 0.5, Neutrophils # (Auto) 4.4, Lymphocytes # (Auto) 2.4, Monocytes # (Auto) 0.6, Eosinophils # (Auto) 0.1, Basophils # (Auto) 0.0, Calcium Level 9.2 Assessment/Plan 63 year old male with diabetes and hypertension has been having right groin, buttock pain radiating down the right leg from the beginning of November. He had a outpateint MRI for this done on 12/04 which showed diffuse disc bulges at L3- 4 and L4-L5 levelswith minimal thecal sac compression. There is compression of the L$ nerve in the neural foramen. There is also diffuse disc bulge at the L5- S1 level . he was diagnosed with Acute lumber radiculopathy. He was started on oral pain meds, muscle relaxants and gabapentin without any relief so he had an epidural injection done by Dr Lomax on 12/12/18 as an outpateint. However this also did not relief the pain at all. He has been hobbling around and has not been able to stand up straight. the pain is sharp some times burning , sometimes shooting going down his front and medical side of the leg and often his leg is going into spasms. This morning he woke up with his leg bent in a L shape and he could not straighten his leg. He could not get out of bed or bear weight on the leg. He called Dr Lomax and was advised to come to the ED. ED provider contacted Dr Lomax and he advised doubling the oral pain meds if that was not working is suggested IV pain medications. Oral pain med in [facility] ED failed to work so the patient is being admitted to the hospitalist service for pain control. Patient admitted for Acute lumber radiculopathy with intractable pain and inability to ambulate. Acute Lumber Radiculopathy with inability to ambulate. will give Dilaudid in monitored area will give tizanidine, gabapentin and ketorolac. PT after pain is controlled. Diabetes will give lispro as per sliding scale continue januvia Hypertension continue losartan, coreg will continue home meds. Hyperlipidemia on statin. Plan / VTE VTE Prophylaxis Ordered?: Yes JOSIAS PEARCE MD December 17, 2018 18:52
[2018-12-17] MEDS: HumaLOG INSULIN (NovoLOG) PER UNIT SC SCH (21:00)
[2018-12-17] MEDS: CARVedilol 6.25 MG TAB PO SCH (21:00)
[2018-12-17 21:05] VITALS: BP 168/84
[2018-12-17 22:00] VITALS: O2SAT 97
[2018-12-17] MEDS: ATORVASTATIN 20 MG TAB PO SCH (22:03)
[2018-12-17] MEDS: GABAPENTIN 300 MG CAP PO SCH (22:04)
[2018-12-17] MEDS: tiZANidine 4 MG TAB PO SCH (22:04)
[2018-12-17] MEDS: ENOXAPARIN 40 MG/0.4 ML SYRINGE (J1650) SC SCH (22:05)
[2018-12-17] MEDS ORDERED: amLODIPine 5 MG TAB PO ONE (22:15)
[2018-12-17] MEDS: HYDROMORPHONE HCL 0.5 MG/ 0.5 ML SYRINGE (J1170 PER 1) IV PRN (22:38)
[2018-12-17 23:00] VITALS: O2SAT 92
[2018-12-17 23:59] VITALS: BP 141/66
[2018-12-18] VITALS (24 sets, daily range): BP systolic 134–167; BP diastolic 52–93; O2SAT 94–98
[2018-12-18 05:15] LABS: BASO % 0.6 % (0.0-1.0); EOS # 0.1 10^3/uL (0.0-0.50); EOS % 1.3 % (0.0-3.0); HEMATOCRIT 42.4 % (42.0-52.0); HEMOGLOBIN 13.6 g/dl (13.5-17.5); LYMPH # 2.2 10^3/uL (1.5-4.5); MEAN CORPUSCULAR HGB CONC 32.1 g/dl (32.0-36.5); MEAN CORPUSCULAR VOLUME 90.4 fl (80.0-96.0); MONO # 0.6 10^3/uL (0.0-0.8); MONO % 10.2 % (0.0-5.0); NEUTROPHILS # 3.2 10^3/uL (1.8-7.7); NEUTROPHILS % 51.7 % (36.0-66.0); PLATELET COUNT, AUTOMATED 173 10^3/uL (150-450); RED BLOOD COUNT 4.69 10^6/uL (4.30-6.10); WHITE BLOOD COUNT 6.2 10^3/uL (4.0-10.0)
[2018-12-18] MEDS: KETOROLAC 30 MG/ML VIAL (J1885) IV SCH ×3 (05:33→20:49)
[2018-12-18 05:35] LABS: BLOOD UREA NITROGEN 34 MG/DL (7-18); CARBON DIOXIDE LEVEL 27 MEQ/L (21-32); CHLORIDE LEVEL 109 MEQ/L (98-107); CREATININE FOR GFR 1.26 MG/DL (0.70-1.30); GLOMERULAR FILTRATION RATE > 60.0 (>49); GLUCOSE, FASTING 128 MG/DL (70-100); SODIUM LEVEL 142 MEQ/L (136-145)
[2018-12-18] MEDS: tiZANidine 4 MG TAB PO SCH ×3 (08:23→20:48)
[2018-12-18] MEDS: GABAPENTIN 300 MG CAP PO SCH ×3 (08:23→20:48)
[2018-12-18] MEDS: HumaLOG INSULIN (NovoLOG) PER UNIT SC SCH ×4 (08:24→20:13)
[2018-12-18] MEDS: CARVedilol 6.25 MG TAB PO SCH (08:53)
[2018-12-18] MEDS: SITagliptin 50 MG TAB (JANUVIA) PO SCH (08:59)
[2018-12-18] MEDS: HYDROMORPHONE HCL 0.5 MG/ 0.5 ML SYRINGE (J1170 PER 1) IV PRN ×2 (09:01→14:27)
[2018-12-18] MEDS ORDERED: BISACODYL 5 MG TAB PO PRN (16:15)
[2018-12-18] MEDS ORDERED: MOM 30ML SUSPENSION UDC PO PRN (16:15)
--- NOTE | 2018-12-18 16:18 | IPNPDOC ---
Subjective Date Seen The patient was seen on 12/18/18. Subjective Chief Complaint/HPI Severe right lower extremity pain and spasms. Events since last encounter Pateint's pain is much better controlled this am. The current combination of pain meds and muscle relaxants are working well. Discussed with Dr Lomax from pain management will continue on the current regimen , rest over the week end. Today spasms in the leg are less . He is able to straighten out the leg and able to get out of bed and bear a little weight on that leg. He is happy with his pain control. He denies any nausea or vomiting . Denies any confusion, denes any SOB , cough or phlegm, Denies any abdominal pain or diarrhea. Has not had any bowel movement yet. will give stool softeners. Telemetry personally rreviewed. pateint has persistent sinus bradycardia no other events. Objective Physical Examination General Exam: Positive: Alert, Cooperative, No Acute Distress Eye Exam: Positive: PERRLA, Conjunctiva & lids normal, EOMI; Negative: Sclera icteric ENT Exam: Positive: Atraumatic, Mucous membr. moist/pink, Pharynx Normal Neck Exam: Positive: Supple; Negative: JVD, thyromegaly Chest Exam: Positive: Clear to auscultation, Normal air movement Heart Exam: Positive: Rate Normal, Regular Rhythm, Normal S1, Normal S2; Negative: Murmurs, Rubs Abdomen Exam: Positive: Normal bowel sounds, Soft; Negative: Tenderness, Hepatospenomegaly Extremity Exam: Positive: Normal pulses; Negative: Clubbing, Cyanosis, Edema Skin Exam: Positive: Nl turgor and temperature; Negative: Breakdown, Lesion Neuro Exam: Positive: Normal Speech, Normal Tone, Sensation Intact, Other (absent DTRs on the right leg, ) Psych Exam: Positive: Mood NL, Memory Intact, Oriented x 3 Assessment /Plan Assessment 63 year old male with diabetes and hypertension has been having right groin, buttock pain radiating down the right leg from the beginning of November. He had a outpateint MRI for this done on 12/04 which showed diffuse disc bulges at L3- 4 and L4-L5 levelswith minimal thecal sac compression. There is compression of the L$ nerve in the neural foramen. There is also diffuse disc bulge at the L5- S1 level . he was diagnosed with Acute lumber radiculopathy. He was started on oral pain meds, muscle relaxants and gabapentin without any relief so he had an epidural injection done by Dr Lomax on 12/12/18 as an outpateint. However this also did not relief the pain at all. He has been hobbling around and has not been able to stand up straight. the pain is sharp some times burning , sometimes shooting going down his front and medical side of the leg and often his leg is going into spasms. This morning he woke up with his leg bent in a L shape and he could not straighten his leg. He could not get out of bed or bear weight on the leg. He called Dr Lomax and was advised to come to the ED. ED provider contacted Dr Lomax and he advised doubling the oral pain meds if that was not working is suggested IV pain medications. Oral pain med in [facility] ED failed to work so the patient is being admitted to the hospitalist service for pain control. Patient admitted for Acute lumber radiculopathy with intractable pain and inability to ambulate. Acute Lumber Radiculopathy with inability to ambulate. pain much improved today. will continue IV Dilaudid in monitored area 1.6 mg or 1 mg depending on [facility] level of pain every 3 hours as per protocol continue cardiac and respiratory continuos monitoring. COntinue tizanidine, gabapentin and ketorolac. Consulted Dr Lomax from pain management. Spoke to him over the phone he will be available for any issues. He will see the pateint on Thursday. Sinus Bradycardia Asymptomatic noted in Telemetry. lowest 44. Coreg dose reduced and has hold parameters. will possibly discontinue it on discharge if he remains bradycardic Diabetes will give lispro as per sliding scale continue januvia Hypertension will give amlodipine and losartan. Coreg on hold due to bradycardia. Hyperlipidemia on statin. Plan/VTE VTE Prophylaxis Ordered?: Yes VS, I&O, 24H, Fishbone Vital Signs/I&O Vital Signs Date Time Temp Pulse Resp B/P (MAP) Pulse Ox O2 Delivery O2 Flow Rate FiO2 12/18/18 14:37 18 96 12/18/18 13:00 Room Air 12/18/18 12:00 97.4 62 148/52 (84) I&O- Last 24 Hours up to 6 AM 12/18/18 06:00 Intake Total 1000 ml Output Total 0 ml Balance 1000 ml Laboratory Data 24H LABS Laboratory Tests 2 12/17/18 21:41: Bedside Glucose (Misc Panel) 127H 12/18/18 04:54: Immature Granulocyte % (Auto) 0.2, White Blood Count 6.2, Red Blood Count 4.69, Hemoglobin 13.6, Hematocrit 42.4, Mean Corpuscular Volume 90.4, Mean Corpuscular Hemoglobin 29.0, Mean Corpuscular Hemoglobin Concent 32.1, Red Cell Distribution Width 12.9, Platelet Count 173, Neutrophils (%) (Auto) 51.7, Lymphocytes (%) (Auto) 36.0, Monocytes (%) (Auto) 10.2H, Eosinophils (%) (Auto) 1.3, Basophils (%) (Auto) 0.6, Neutrophils # (Auto) 3.2, Lymphocytes # (Auto) 2.2, Monocytes # (Auto) 0.6, Eosinophils # (Auto) 0.1, Basophils # (Auto) 0.0, Nucleated Red Blood Cells % (auto) 0.0, Anion Gap 6L, Glomerular Filtration Rate > 60.0, Blood Urea Nitrogen 34H, Creatinine 1.26, Sodium Level 142, Potassium Level 4.0, Chloride Level 109H, Carbon Dioxide Level 27, Calcium Level 9.0 12/18/18 12:04: Bedside Glucose (Misc Panel) 207H CBC/BMP Laboratory Tests 12/18/18 04:54 Red Blood Count 4.69, Mean Corpuscular Volume 90.4, Mean Corpuscular Hemoglobin 29.0, Mean Corpuscular Hemoglobin Concent 32.1, Red Cell Distribution Width 12.9, Neutrophils (%) (Auto) 51.7, Lymphocytes (%) (Auto) 36.0, Monocytes (%) (Auto) 10.2 H, Eosinophils (%) (Auto) 1.3, Basophils (%) (Auto) 0.6, Neutrophils # (Auto) 3.2, Lymphocytes # (Auto) 2.2, Monocytes # (Auto) 0.6, Eosinophils # (Auto) 0.1, Basophils # (Auto) 0.0, Calcium Level 9.0 JOSIAS PEARCE MD December 18, 2018 16:18
[2018-12-18] MEDS: ENOXAPARIN 40 MG/0.4 ML SYRINGE (J1650) SC SCH (18:23)
[2018-12-18] MEDS: ATORVASTATIN 20 MG TAB PO SCH (20:48)
[2018-12-18] MEDS: SENOKOT S TAB PO SCH (20:49)
[2018-12-18] MEDS: CARVedilol 3.125 MG TAB PO SCH (21:00)
[2018-12-19] VITALS (23 sets, daily range): BP systolic 129–160; BP diastolic 64–86; O2SAT 92–98
[2018-12-19] MEDS: KETOROLAC 30 MG/ML VIAL (J1885) IV SCH ×5 (05:14→23:25)
[2018-12-19 06:22] LABS: BASO % 0.3 % (0.0-1.0); EOS # 0.1 10^3/uL (0.0-0.50); EOS % 2.1 % (0.0-3.0); HEMATOCRIT 42.1 % (42.0-52.0); HEMOGLOBIN 13.7 g/dl (13.5-17.5); LYMPH # 1.9 10^3/uL (1.5-4.5); LYMPH % 29.4 % (24.0-44.0); MEAN CORPUSCULAR HEMOGLOBIN 29.3 pg (27.0-33.0); MEAN CORPUSCULAR HGB CONC 32.5 g/dl (32.0-36.5); MEAN CORPUSCULAR VOLUME 90.1 fl (80.0-96.0); MONO # 0.5 10^3/uL (0.0-0.8); MONO % 7.9 % (0.0-5.0); NEUTROPHILS # 3.8 10^3/uL (1.8-7.7); PLATELET COUNT, AUTOMATED 159 10^3/uL (150-450); RED BLOOD COUNT 4.67 10^6/uL (4.30-6.10); WHITE BLOOD COUNT 6.3 10^3/uL (4.0-10.0)
[2018-12-19] MEDS: HYDROMORPHONE HCL 0.5 MG/ 0.5 ML SYRINGE (J1170 PER 1) IV PRN ×4 (06:33→21:22)
[2018-12-19 06:43] LABS: BLOOD UREA NITROGEN 30 MG/DL (7-18); CARBON DIOXIDE LEVEL 26 MEQ/L (21-32); CHLORIDE LEVEL 109 MEQ/L (98-107); CREATININE FOR GFR 1.02 MG/DL (0.70-1.30); GLOMERULAR FILTRATION RATE > 60.0 (>49); GLUCOSE, FASTING 115 MG/DL (70-100); POTASSIUM SERUM 3.9 MEQ/L (3.5-5.1); SODIUM LEVEL 141 MEQ/L (136-145)
[2018-12-19] MEDS: CARVedilol 3.125 MG TAB PO SCH (09:00)
[2018-12-19] MEDS: SENOKOT S TAB PO SCH ×2 (09:00→20:59)
[2018-12-19] MEDS: SITagliptin 50 MG TAB (JANUVIA) PO SCH (09:26)
[2018-12-19] MEDS: amLODIPine 5 MG TAB PO SCH (09:27)
[2018-12-19] MEDS: tiZANidine 4 MG TAB PO SCH ×3 (09:27→20:58)
[2018-12-19] MEDS: HumaLOG INSULIN (NovoLOG) PER UNIT SC SCH ×4 (09:28→21:00)
[2018-12-19] MEDS: LOSARTAN 50 MG TAB PO SCH (09:28)
[2018-12-19] MEDS: GABAPENTIN 300 MG CAP PO SCH ×3 (09:28→20:58)
[2018-12-19] MEDS ORDERED: PERCOCET 5MG/325MG TAB PO ONE (11:15)
[2018-12-19] MEDS: MIRALAX *UNIT DOSE* 17GM PACKET PO SCH (11:30)
--- NOTE | 2018-12-19 12:00 | IPNPDOC ---
Subjective Date Seen The patient was seen on 12/19/18. Subjective Chief Complaint/HPI Continues to have sharp, burning and shooting pain in the right leg along with muscle spasms. Has not had a bowel movement for 3 days. Have ordered bowel regimen however patient has been refusing it. Objective Physical Examination General Exam: Positive: Alert, Cooperative, No Acute Distress Eye Exam: Positive: PERRLA, Conjunctiva & lids normal, EOMI; Negative: Sclera icteric ENT Exam: Positive: Atraumatic, Mucous membr. moist/pink, Pharynx Normal Neck Exam: Positive: Supple; Negative: JVD, thyromegaly Chest Exam: Positive: Clear to auscultation, Normal air movement Heart Exam: Positive: Rate Normal, Regular Rhythm, Normal S1, Normal S2; Negative: Murmurs, Rubs Abdomen Exam: Positive: Normal bowel sounds, Soft; Negative: Tenderness, Hepatospenomegaly Extremity Exam: Positive: Normal pulses; Negative: Clubbing, Cyanosis, Edema Skin Exam: Positive: Nl turgor and temperature; Negative: Breakdown, Lesion Neuro Exam: Positive: Normal Speech, Normal Tone, Sensation Intact, Other ( absent DTRs on the right leg, ) Psych Exam: Positive: Mood NL, Memory Intact, Oriented x 3 Assessment /Plan Assessment 63 year old male with diabetes and hypertension has been having right groin, buttock pain radiating down the right leg from the beginning of November. He had a outpateint MRI for this done on 12/04 which showed diffuse disc bulges at L3- 4 and L4-L5 levelswith minimal thecal sac compression. There is compression of the L$ nerve in the neural foramen. There is also diffuse disc bulge at the L5- S1 level . he was diagnosed with Acute lumber radiculopathy. He was started on oral pain meds, muscle relaxants and gabapentin without any relief so he had an epidural injection done by Dr Lomax on 12/12/18 as an outpateint. However this also did not relief the pain at all. He has been hobbling around and has not been able to stand up straight. the pain is sharp some times burning , sometimes shooting going down his front and medical side of the leg and often his leg is going into spasms. This morning he woke up with his leg bent in a L shape and he could not straighten his leg. He could not get out of bed or bear weight on the leg. He called Dr Lomax and was advised to come to the ED. ED provider contacted Dr oLmax and he advised doubling the oral pain meds if that was not working is suggested IV pain medications. Oral pain med in [facility] ED failed to work so the patient is being admitted to the hospitalist service for pain control. Patient admitted for Acute lumber radiculopathy with intractable pain and in ability to ambulate. Acute Lumber Radiculopathy with inability to ambulate. Today pain is again not well controlled Requiring dilaudid every 3 to 4 hours. will continue IV Dilaudid in monitored area 1.6 mg or 1 mg depending on thelevel of pain every 3 hours as per protocol continue cardiac and respiratory continuos monitoring. Started perccet. COntinue tizanidine, gabapentin and ketorolac. Consulted Dr Lomax from pain management. Spoke to him over the phone he will be available for any issues. He will see the pateint on Thursday. Sinus Bradycardia Asymptomatic noted in Telemetry. lowest 44. will dc coreg will possibly discontinue it on discharge if he remains bradycardic Diabetes will give lispro as per sliding scale continue januvia Hypertension will give amlodipine and losartan. Coreg on hold due to bradycardia. Hyperlipidemia on statin. Plan/VTE VTE Prophylaxis Ordered?: Yes VS, I&O, 24H, Fishbone Vital Signs/I&O Vital Signs Date Time Temp Pulse Resp B/P (MAP) Pulse Ox O2 Delivery O2 Flow Rate FiO2 12/19/18 11:35 18 12/19/18 09:28 156/82 12/19/18 09:27 54 12/19/18 08:00 98.9 96 12/19/18 05:00 Room Air I&O- Last 24 Hours up to 6 AM 12/19/18 06:00 Intake Total 1380 ml Output Total 1600 ml Balance -220 ml Laboratory Data 24H LABS Laboratory Tests 2 12/18/18 12:04: Bedside Glucose (Misc Panel) 207H 12/18/18 16:28: Bedside Glucose (Misc Panel) 111 12/18/18 20:01: Bedside Glucose (Misc Panel) 112 12/19/18 05:13: Immature Granulocyte % (Auto) 0.3, White Blood Count 6.3, Red Blood Count 4.67, Hemoglobin 13.7, Hematocrit 42.1, Mean Corpuscular Volume 90.1, Mean Corpuscular Hemoglobin 29.3, Mean Corpuscular Hemoglobin Concent 32.5, Red Cell Distribution Width 12.8, Platelet Count 159, Neutrophils (%) (Auto) 60.0, Lymphocytes (%) (Auto) 29.4, Monocytes (%) (Auto) 7.9H, Eosinophils (%) (Auto) 2.1, Basophils (%) (Auto) 0.3, Neutrophils # (Auto) 3.8, Lymphocytes # (Auto) 1.9, Monocytes # (Auto) 0.5, Eosinophils # (Auto) 0.1, Basophils # (Auto) 0.0, Nucleated Red Blood Cells % (auto) 0.0, Anion Gap 6L, Glomerular Filtration Rate > 60.0, Blood Urea Nitrogen 30H, Creatinine 1.02, Sodium Level 141, Potassium Level 3.9, Chloride Level 109H, Carbon Dioxide Level 26, Calcium Level 9.0 CBC/BMP Laboratory Tests 12/19/18 05:13 Red Blood Count 4.67, Mean Corpuscular Volume 90.1, Mean Corpuscular Hemoglobin 29.3, Mean Corpuscular Hemoglobin Concent 32.5, Red Cell Distribution Width 12.8, Neutrophils (%) (Auto) 60.0, Lymphocytes (%) (Auto) 29.4, Monocytes (%) (Auto) 7.9 H, Eosinophils (%) (Auto) 2.1, Basophils (%) (Auto) 0.3, Neutrophils # (Auto) 3.8, Lymphocytes # (Auto) 1.9, Monocytes # (Auto) 0.5, Eosinophils # (Auto) 0.1, Basophils # (Auto) 0.0, Calcium Level 9.0 JSOIAS PEARCE MD December 19, 2018 12:00
[2018-12-19] MEDS: ENOXAPARIN 40 MG/0.4 ML SYRINGE (J1650) SC SCH (18:23)
[2018-12-19] MEDS: ATORVASTATIN 20 MG TAB PO SCH (20:58)
[2018-12-20] VITALS (20 sets, daily range): BP systolic 135–170; BP diastolic 75–85; O2SAT 91–97
[2018-12-20 04:09] LABS: BASO % 0.7 % (0.0-1.0); EOS # 0.2 10^3/uL (0.0-0.50); HEMATOCRIT 40.6 % (42.0-52.0); LYMPH % 36.1 % (24.0-44.0); MEAN CORPUSCULAR VOLUME 90.4 fl (80.0-96.0); MONO # 0.4 10^3/uL (0.0-0.8); MONO % 7.7 % (0.0-5.0); NEUTROPHILS # 2.8 10^3/uL (1.8-7.7); NEUTROPHILS % 51.1 % (36.0-66.0); PLATELET COUNT, AUTOMATED 159 10^3/uL (150-450); RED BLOOD COUNT 4.49 10^6/uL (4.30-6.10); WHITE BLOOD COUNT 5.5 10^3/uL (4.0-10.0)
[2018-12-20 04:29] LABS: BLOOD UREA NITROGEN 36 MG/DL (7-18); CARBON DIOXIDE LEVEL 28 MEQ/L (21-32); CHLORIDE LEVEL 109 MEQ/L (98-107); CREATININE FOR GFR 1.14 MG/DL (0.70-1.30); GLOMERULAR FILTRATION RATE > 60.0 (>49); GLUCOSE, FASTING 125 MG/DL (70-100); POTASSIUM SERUM 4.2 MEQ/L (3.5-5.1); SODIUM LEVEL 143 MEQ/L (136-145)
[2018-12-20] MEDS: KETOROLAC 30 MG/ML VIAL (J1885) IV SCH ×2 (06:17→13:07)
[2018-12-20] MEDS: HumaLOG INSULIN (NovoLOG) PER UNIT SC SCH ×4 (08:33→21:00)
[2018-12-20] MEDS: LOSARTAN 50 MG TAB PO SCH (08:34)
[2018-12-20] MEDS: SENOKOT S TAB PO SCH ×2 (08:34→21:05)
[2018-12-20] MEDS: tiZANidine 4 MG TAB PO SCH ×3 (08:34→21:05)
[2018-12-20] MEDS: SITagliptin 50 MG TAB (JANUVIA) PO SCH (08:34)
[2018-12-20] MEDS: PERCOCET 5MG/325MG TAB PO PRN ×2 (08:35→21:05)
[2018-12-20] MEDS: MIRALAX *UNIT DOSE* 17GM PACKET PO SCH (08:36)
[2018-12-20] MEDS: amLODIPine 5 MG TAB PO SCH (08:36)
[2018-12-20] MEDS: GABAPENTIN 300 MG CAP PO SCH ×3 (08:36→21:04)
--- NOTE | 2018-12-20 12:59 | IPNPDOC ---
Subjective Date Seen The patient was seen on 12/20/18. Subjective Chief Complaint/HPI Pain today appears to be better controlled. He is able to move more. He is not having any muscle spasms today. Had a regular bowel movement this am. No nausea or vomiting , no abdominal pain , no fever or chills Objective Physical Examination General Exam: Positive: Alert, Cooperative, No Acute Distress Eye Exam: Positive: PERRLA, Conjunctiva & lids normal, EOMI; Negative: Sclera icteric ENT Exam: Positive: Atraumatic, Mucous membr. moist/pink, Pharynx Normal Neck Exam: Positive: Supple; Negative: JVD, thyromegaly Chest Exam: Positive: Clear to auscultation, Normal air movement Heart Exam: Positive: Rate Normal, Regular Rhythm, Normal S1, Normal S2; Negative: Murmurs, Rubs Abdomen Exam: Positive: Normal bowel sounds, Soft; Negative: Tenderness, Hepatospenomegaly Extremity Exam: Positive: Normal pulses; Negative: Clubbing, Cyanosis, Edema Skin Exam: Positive: Nl turgor and temperature; Negative: Breakdown, Lesion Neuro Exam: Positive: Normal Speech, Normal Tone, Sensation Intact, Other (absent DTRs on the right leg, ) Psych Exam: Positive: Mood NL, Memory Intact, Oriented x 3 Assessment /Plan Assessment 63 year old male with diabetes and hypertension has been having right groin, buttock pain radiating down the right leg from the beginning of November. He had a outpateint MRI for this done on 12/04 which showed diffuse disc bulges at L3- 4 and L4-L5 levelswith minimal thecal sac compression. There is compression of the L$ nerve in the neural foramen. There is also diffuse disc bulge at the L5- S1 level . he was diagnosed with Acute lumber radiculopathy. He was started on oral pain meds, muscle relaxants and gabapentin without any relief so he had an epidural injection done by Dr Lomax on 12/12/18 as an outpateint. However this also did not relief the pain at all. He has been hobbling around and has not been able to stand up straight. the pain is sharp some times burning , sometimes shooting going down his front and medical side of the leg and often his leg is going into spasms. This morning he woke up with his leg bent in a L shape and he could not straighten his leg. He could not get out of bed or bear weight on the leg. He called Dr Lomax and was advised to come to the ED. ED provider cont acted Dr Lomax and he advised doubling the oral pain meds if that was not working is suggested IV pain medications. Oral pain med in [facility] ED failed to work so the patient is being admitted to the hospitalist service for pain control. Patient admitted for Acute lumber radiculopathy with intractable pain and inability to ambulate. Acute Lumber Radiculopathy with inability to ambulate. Today pain is better controlled with percocet. Did not need any dilaudid overnight. will continue IV Dilaudid in monitored area 1.6 mg or 1 mg depending on thelevel of pain every 3 hours as per protocol continue cardiac and respiratory continuos monitoring. Started perccet. Continue tizanidine, gabapentin and ketorolac. Consulted Dr Lomax from pain management. Spoke to him over the phone he will be available for any issues. He will see the pateint on Thursday. Sinus Bradycardia Asymptomatic noted in Telemetry. lowest 44. will dc coreg Diabetes will give lispro as per sliding scale continue januvia Hypertension will give amlodipine and losartan. Coreg dced due to sinus bradycardia. Hyperlipidemia on statin. Plan/VTE VTE Prophylaxis Ordered?: Yes VS, I&O, 24H, Antoniobone Vital Signs/I&O Vital Signs Date Time Temp Pulse Resp B/P (MAP) Pulse Ox O2 Delivery O2 Flow Rate FiO2 12/20/18 12:00 98.5 54 20 167/85 (112) 97 12/20/18 07:00 Room Air I&O- Last 24 Hours up to 6 AM 12/20/18 06:00 Intake Total 1180 ml Output Total 1500 ml Balance -320 ml Laboratory Data 24H LABS Laboratory Tests 2 12/19/18 16:40: Bedside Glucose (Misc Panel) 132H 12/19/18 21:05: Bedside Glucose (Misc Panel) 126H 12/20/18 03:43: Immature Granulocyte % (Auto) 0.4, White Blood Count 5.5, Red Blood Count 4.49, Hemoglobin 13.0L, Hematocrit 40.6L, Mean Corpuscular Volume 90.4, Mean Corpuscular Hemoglobin 29.0, Mean Corpuscular Hemoglobin Concent 32.0, Red Cell Distribution Width 12.6, Platelet Count 159, Neutrophils (%) (Auto) 51.1, Lymphocytes (%) (Auto) 36.1, Monocytes (%) (Auto) 7.7H, Eosinophils (%) (Auto) 4.0H, Basophils (%) (Auto) 0.7, Neutrophils # (Auto) 2.8, Lymphocytes # (Auto) 2.0, Monocytes # (Auto) 0.4, Eosinophils # (Auto) 0.2, Basophils # (Auto) 0.0, Nucleated Red Blood Cells % (auto) 0.0, Anion Gap 6L, Glomerular Filtration Rate > 60.0, Blood Urea Nitrogen 36H, Creatinine 1.14, Sodium Level 143, Potassium Level 4.2, Chloride Level 109H, Carbon Dioxide Level 28, Calcium Level 9.0 12/20/18 11:38: Bedside Glucose (Misc Panel) 145H CBC/BMP Laboratory Tests 12/20/18 03:43 Red Blood Count 4.49, Mean Corpuscular Volume 90.4, Mean Corpuscular Hemoglobin 29.0, Mean Corpuscular Hemoglobin Concent 32.0, Red Cell Distribution Width 12.6, Neutrophils (%) (Auto) 51.1, Lymphocytes (%) (Auto) 36.1, Monocytes (%) (Auto) 7.7 H, Eosinophils (%) (Auto) 4.0 H, Basophils (%) (Auto) 0.7, Neutrophils # (Auto) 2.8, Lymphocytes # (Auto) 2.0, Monocytes # (Auto) 0.4, Eosinophils # (Auto) 0.2, Basophils # (Auto) 0.0, Calcium Level 9.0 JOSIAS PEARCE MD December 20, 2018 12:59
[2018-12-20] MEDS: ENOXAPARIN 40 MG/0.4 ML SYRINGE (J1650) SC SCH (17:35)
--- NOTE | 2018-12-20 18:08 | CR ---
DATE OF CONSULTATION: 12/20/2018 CHIEF COMPLAINT: Low back pain, right leg pain. HISTORY OF PRESENT ILLNESS: Lex is a 63-year-old gentleman who was admitted on 12/17/2018 for acute low back pain and right leg pain. He began with acute low back pain and right leg pain abruptly in November without precipitating event. He was initially seen at out pain clinic and underwent a lumbar epidural steroid injection on 12/15/2018. Today he is feeling much better. He is able to use Percocet with some relief. He has not had any IV pain medicine for 24 hours. He would like to go home. Dr. Lomax was in to evaluate him with me. It should be noted that I am dictating Dr. Lomax's physical exam at the bedside here today. PHYSICAL EXAM: Awake, alert, pleasant and no acute distress. VITAL SIGNS: 98.5, 54, 20, blood pressure 167/85, Oxygen saturation 97%. CARDIAC: S1, S2 normal rate and rhythm. RESPIRATORY: Lung sounds are clear. Respirations are nonlabored. MUSCULOSKELETAL: Mild weakness noted over right leg compared with left. Straight leg raise is showing mild discomfort right low back at 60 degrees. Ambulating without assistance from sitting to standing. ASSESSMENT: 1. Acute low back pain. 2. Right lumbar radiculopathy. PLAN: Dr. Lomax followed up with Dr. Lema, the attending. The plan is to evaluate for discharge. PT evaluation has been set up. Plans are for discharge either tonight or tomorrow. He will be seeing Dr. Lomax at the pain center in 3 days for reevaluation.
[2018-12-20] MEDS: ATORVASTATIN 20 MG TAB PO SCH (21:05)
[2018-12-21] VITALS (10 sets, daily range): BP systolic 139; BP diastolic 81–84; O2SAT 94–98
[2018-12-21] MEDS: PERCOCET 5MG/325MG TAB PO PRN ×2 (04:16→11:36)
[2018-12-21 05:20] LABS: BASO # 0.1 10^3/uL (0.0-0.2); EOS # 0.3 10^3/uL (0.0-0.50); EOS % 4.2 % (0.0-3.0); HEMOGLOBIN 13.8 g/dl (13.5-17.5); LYMPH # 2.2 10^3/uL (1.5-4.5); LYMPH % 35.9 % (24.0-44.0); MEAN CORPUSCULAR HEMOGLOBIN 28.9 pg (27.0-33.0); MEAN CORPUSCULAR HGB CONC 32.1 g/dl (32.0-36.5); MEAN CORPUSCULAR VOLUME 90.1 fl (80.0-96.0); MONO # 0.5 10^3/uL (0.0-0.8); MONO % 7.3 % (0.0-5.0); NEUTROPHILS # 3.2 10^3/uL (1.8-7.7); NEUTROPHILS % 51.4 % (36.0-66.0); PLATELET COUNT, AUTOMATED 163 10^3/uL (150-450); RED BLOOD COUNT 4.77 10^6/uL (4.30-6.10); WHITE BLOOD COUNT 6.1 10^3/uL (4.0-10.0)
[2018-12-21 05:41] LABS: BLOOD UREA NITROGEN 22 MG/DL (7-18); CALCIUM LEVEL 8.6 MG/DL (8.8-10.2); CARBON DIOXIDE LEVEL 28 MEQ/L (21-32); CHLORIDE LEVEL 108 MEQ/L (98-107); CREATININE FOR GFR 1.03 MG/DL (0.70-1.30); GLOMERULAR FILTRATION RATE > 60.0 (>49); GLUCOSE, FASTING 127 MG/DL (70-100); POTASSIUM SERUM 4.2 MEQ/L (3.5-5.1); SODIUM LEVEL 143 MEQ/L (136-145)
[2018-12-21] MEDS ORDERED: PERCOCET PO (07:01)
[2018-12-21] MEDS ORDERED: LOSA50TA88 PO (07:01)
[2018-12-21] MEDS ORDERED: TIZA4TAB4 PO (07:01)
[2018-12-21] MEDS: HumaLOG INSULIN (NovoLOG) PER UNIT SC SCH ×2 (08:33→11:36)
[2018-12-21] MEDS: tiZANidine 4 MG TAB PO SCH (08:34)
[2018-12-21] MEDS: SITagliptin 50 MG TAB (JANUVIA) PO SCH (08:34)
[2018-12-21] MEDS: GABAPENTIN 300 MG CAP PO SCH (08:34)
[2018-12-21] MEDS: amLODIPine 5 MG TAB PO SCH (08:35)
[2018-12-21] MEDS: SENOKOT S TAB PO SCH (08:35)
[2018-12-21] MEDS: LOSARTAN 50 MG TAB PO SCH (08:35)
[2018-12-21] MEDS: MIRALAX *UNIT DOSE* 17GM PACKET PO SCH (08:36)
[2018-12-21] MEDS ORDERED: NAPR-885 PO (09:36)
[2018-12-21] MEDS ORDERED: IBUPROFEN 800 MG TAB PO ONE (11:00)
--- NOTE | 2018-12-21 23:09 | DS.PDOC ---
Discharge Summary General Date of Admission December 17, 2018 at 18:20 Date of Discharge 12/21/18 Discharge Summary PROCEDURES PERFORMED DURING STAY: [None]. DISCHARGE DIAGNOSES: Acute right lumber radiculopathy Low back pain Diabetes Hypertension Hyperlipidemia Obesity Sinus bradycardia. COMPLICATIONS/CHIEF COMPLAINT: Acute Right Lumbar Radiculopathy. HISTORY OF PRESENT ILLNESS: See history and physical HOSPITAL COURSE: 63 year old male with diabetes and hypertension has been having right groin, buttock pain radiating down the right leg from the beginning of November. He had a outpatient MRI for this done on the 12/04 which showed diffuse disc bulges at L3-4 and L4-L5 levels with minimal thecal sac compression. There is compression of the L4 nerve in the neural foramen. There is also diffuse disc bulge at the L5-S1 level . he was diagnosed with Acute lumber radiculopathy. He was started on oral pain meds, muscle relaxants and gabapentin without any relief so he had an epidural injection done by Dr Lomax on 12/12/18 as an outpatient. However this also did not relief the pain at all. He has been hobbling around and has not been able to stand up straight. the pain is sharp some times burning , sometimes shooting going down his front and medical side of the leg and often his leg is going into spasms. This morning he woke up with his leg bent in a L shape and he could not straighten his leg. He could not get out of bed or bear weight on the leg. He called Dr Lomax and was advised to come to the ED. ED provider contacted Dr Lomax and he advised doubling the oral pain meds if that was not working is suggested IV pain medications. Oral pain med in [facility] ED failed to work so the patient is being admitted to the hospitalist service for pain control. Patient admitted for Acute lumber radiculopathy with intractable pain and inability to ambulate. Acute Lumber Radiculopathy with inability to ambulate. Today pain is better controlled with percocet and ketorolac. After stopping k etorolac pain was starting to bother him and he was having trouble standing up Gave a dose of Motrin which really helped so discharged the pateint with naproxen also Continue tizanidine, gabapentin and ketorolac. Consulted Dr Lomax from pain management. Spoke to him over the phone he will be available for any issues. He will see the pateint on Thursday. Sinus Bradycardia Asymptomatic noted in Telemetry. lowest 44. will dc coreg Diabetes continue januvia and metformin Hypertension will give amlodipine and losartan. Losartan dose increased from 50 to 100 Coreg dced due to sinus bradycardia. Hyperlipidemia on statin. DISCHARGE MEDICATIONS: Please see below. ALLERGIES: Please see below. PHYSICAL EXAMINATION ON DISCHARGE: VITAL SIGNS: Please see below. General Exam: Positive: Alert, Cooperative, No Acute Distress Eye Exam: Positive: PERRLA, Conjunctiva & lids normal, EOMI; Negative: Sclera icteric ENT Exam: Positive: Atraumatic, Mucous membr. moist/pink, Pharynx Normal Neck Exam: Positive: Supple; Negative: JVD, thyromegaly Chest Exam: Positive: Clear to auscultation, Normal air movement Heart Exam: Positive: Rate Normal, Regular Rhythm, Normal S1, Normal S2; Negative: Murmurs, Rubs Abdomen Exam: Positive: Normal bowel sounds, Soft; Negative: Tenderness, Hepatospenomegaly Extremity Exam: Positive: Normal pulses; Negative: Clubbing, Cyanosis, Edema Skin Exam: Positive: Nl turgor and temperature; Negative: Breakdown, Lesion Neuro Exam: Positive: Normal Speech, Normal Tone, Sensation Intact, Other (absent DTRs on the right leg, ) Psych Exam: Positive: Mood NL, Memory Intact, Oriented x 3 LABORATORY DATA: Please see below. ACTIVITY: [As tolerated]. DIET: Carb consistent DISPOSITION: 01 Home, Self-Care. DISCHARGE INSTRUCTIONS: Follow up with Dr Lomax in 3 days Follow up with PMD in 1 week DISCHARGE CONDITION: [Stable]. TIME SPENT ON DISCHARGE: Greater than 30 minutes. Vital Signs/I&Os Vital Signs Date Time Temp Pulse Resp B/P (MAP) Pulse Ox O2 Delivery O2 Flow Rate FiO2 12/21/18 12:06 18 12/21/18 09:00 98 Room Air 12/21/18 08:35 55 139/84 12/21/18 08:00 98.2 I&O- Last 24 Hours up to 6 AM 12/21/18 06:00 Intake Total 810 ml Output Total 2000 ml Balance -1190 ml Laboratory Data Labs 24H Laboratory Tests 2 12/21/18 04:44: Immature Granulocyte % (Auto) 0.2, White Blood Count 6.1, Red Blood Count 4.77, Hemoglobin 13.8, Hematocrit 43.0, Mean Corpuscular Volume 90.1, Mean Corpuscular Hemoglobin 28.9, Mean Corpuscular Hemoglobin Concent 32.1, Red Cell Distribution Width 12.5, Platelet Count 163, Neutrophils (%) (Auto) 51.4, Lymphocytes (%) (Auto) 35.9, Monocytes (%) (Auto) 7.3H, Eosinophils (%) (Auto) 4.2H, Basophils (%) (Auto) 1.0, Neutrophils # (Auto) 3.2, Lymphocytes # (Auto) 2.2, Monocytes # (Auto) 0.5, Eosinophils # (Auto) 0.3, Basophils # (Auto) 0.1, Nucleated Red Blood Cells % (auto) 0.0, Anion Gap 7L, Glomerular Filtration Rate > 60.0, Blood Urea Nitrogen 22H, Creatinine 1.03, Sodium Level 143, Potassium Level 4.2, Chloride Level 108H, Carbon Dioxide Level 28, Calcium Level 8.6L 12/21/18 11:27: Bedside Glucose (Misc Panel) 127H CBC/BMP Laboratory Tests 12/21/18 04:44 Red Blood Count 4.77, Mean Corpuscular Volume 90.1, Mean Corpuscular Hemoglobin 28.9, Mean Corpuscular Hemoglobin Concent 32.1, Red Cell Distribution Width 12.5, Neutrophils (%) (Auto) 51.4, Lymphocytes (%) (Auto) 35.9, Monocytes (%) (Auto) 7.3 H, Eosinophils (%) (Auto) 4.2 H, Basophils (%) (Auto) 1.0, Neutrophils # (Auto) 3.2, Lymphocytes # (Auto) 2.2, Monocytes # (Auto) 0.5, Eosinophils # (Auto) 0.3, Basophils # (Auto) 0.1, Calcium Level 8.6 L FSBS Laboratory Tests Test 12/21/18 11:27 Range/Units Bedside Glucose (Misc Panel) 127 80-115 MG/DL Discharge Medications Scheduled Aspirin (Aspirin EC) 81 Mg Tablet.dr, 81 MG PO DAILY, (Reported) Atorvastatin Calcium (Atorvastatin Calcium) 40 Mg Tablet, 40 MG PO QHS, (Reported) Gabapentin (Gabapentin) 300 Mg Capsule, 300 MG PO TID, (Reported) Losartan Potassium (Losartan Potassium) 50 Mg Tablet, 100 MG PO DAILY Metformin HCl (Metformin HCl) 500 Mg Tablet, 500 MG PO BIDWM, (Reported) WITH BREAKFAST AND DINNER Naproxen (Naproxen) 500 Mg Tablet, 1 TAB PO BID for pain Sitagliptin Phosphate (Januvia) 100 Mg Tablet, 100 MG PO DAILY, (Reported) Tizanidine HCl (Tizanidine HCl) 4 Mg Tablet, 2 MG PO TID Scheduled PRN Oxycodone/Acetaminophen (Oxycodone-Acetaminophen 5-325) 1 Each Tablet, 2 TAB PO Q8HP PRN for SEVERE PAIN (PS 8-10) Allergies Coded Allergies: No Known Drug Allergies (Verified Allergy, Unknown, 12/17/18) JOSIAS PEARCE MD December 21, 2018 23:09
== END 2018-12-21 16:15 | disposition home or self-care (01) | DRG 347 ==
LOC: M ED 12:41 → M ED INP 18:20 → M PCU 21:01
PROVIDERS: ADMIT Internal Medicine Nephrology; ATTEND Internal Medicine Nephrology
DX: M54.16 Radiculopathy, lumbar region (principal); I10 Essential (primary) hypertension; E66.9 Obesity, unspecified; E78.5 Hyperlipidemia, unspecified; E11.9 Type 2 diabetes mellitus without complications; Z79.82 Long term (current) use of aspirin; Z79.899 Other long term (current) drug therapy

== ENCOUNTER 2018-12-23 12:56 | Inpatient (IN) | payer BC, OTHER ==
[~2018-12-23] VITALS: Ht 190.5 cm; Wt 119.5 kg
[~2018-12-23 12:56] MED LIST changes: -DICL13PA TOP; -GABA-845 PO; -ISOVUE-M 300 61% 15ML VIAL (Q9967) As Ordered ONE; -LIDOCAINE 1% SDV INJ 30 ML VIAL As Ordered ONE; -MEDR4TAB PO; -MIDAZOLAM INJ 2 MG/2 ML VIAL (J2250) As Ordered ONE; -OXYC1TAB23 PO; -TIZA2TAB4 PO; -fentaNYL 100 MCG/2 ML INJECTION (J3010) As Ordered ONE; -methylPREDNISolone SUSP 40 MG/ML (DEPO-medrol) VIAL (J1030) As Ordered ONE
[2018-12-23] MEDS ORDERED: KETOROLAC 30 MG/ML VIAL (J1885) IV ONE (13:30)
[2018-12-23 14:22] LABS: BASO # 0.1 10^3/uL (0.0-0.2); BASO % 0.9 % (0.0-1.0); EOS # 0.2 10^3/uL (0.0-0.50); EOS % 2.1 % (0.0-3.0); HEMATOCRIT 44.1 % (42.0-52.0); HEMOGLOBIN 14.4 g/dl (13.5-17.5); LYMPH # 1.6 10^3/uL (1.5-4.5); LYMPH % 20.7 % (24.0-44.0); MEAN CORPUSCULAR HEMOGLOBIN 29.2 pg (27.0-33.0); MEAN CORPUSCULAR HGB CONC 32.7 g/dl (32.0-36.5); MEAN CORPUSCULAR VOLUME 89.5 fl (80.0-96.0); MONO # 0.5 10^3/uL (0.0-0.8); MONO % 6.3 % (0.0-5.0); NEUTROPHILS # 5.3 10^3/uL (1.8-7.7); NEUTROPHILS % 69.6 % (36.0-66.0); PLATELET COUNT, AUTOMATED 168 10^3/uL (150-450); RED BLOOD COUNT 4.93 10^6/uL (4.30-6.10); WHITE BLOOD COUNT 7.7 10^3/uL (4.0-10.0)
[2018-12-23] MEDS ORDERED: LOSA50TA88 PO (15:18)
[2018-12-23] MEDS ORDERED: NAPR-885 PO (15:18)
[2018-12-23] MEDS ORDERED: TIZA2TAB4 PO (15:18)
[2018-12-23] MEDS ORDERED: OXYC1TAB23 PO (15:18)
[2018-12-23 15:28] LABS: BLOOD UREA NITROGEN 28 MG/DL (7-18); CALCIUM LEVEL 9.5 MG/DL (8.8-10.2); CARBON DIOXIDE LEVEL 25 MEQ/L (21-32); CHLORIDE LEVEL 108 MEQ/L (98-107); GLOMERULAR FILTRATION RATE > 60.0 (>49); GLUCOSE, FASTING 123 MG/DL (70-100); POTASSIUM SERUM 4.4 MEQ/L (3.5-5.1); SODIUM LEVEL 140 MEQ/L (136-145)
[2018-12-23] MEDS ORDERED: IBUPROFEN 800 MG TAB PO PRN (15:45)
[2018-12-23] MEDS ORDERED: HYDROMORPHONE HCL 0.5 MG/ 0.5 ML SYRINGE (J1170 PER 1) IV PRN (15:45)
[2018-12-23 17:30] VITALS: BP 171/90
[2018-12-23] MEDS: tiZANidine 4 MG TAB PO SCH ×2 (18:37→21:50)
[2018-12-23] MEDS: GABAPENTIN 300 MG CAP PO SCH ×2 (18:37→21:50)
--- NOTE | 2018-12-23 18:48 | HPE ---
DATE OF ADMISSION: 12/23/2018 CHIEF COMPLAINT: Right leg pain. HISTORY OF PRESENT ILLNESS: This is a 63-year-old man who is now experienced approximately 5-6 weeks of right hip and lower extremity pain with mild weakness. He has radicular shooting electroshock like symptoms going down the leg now since of the start of November. He has no problems with bowel or bladder incontinence or loss of control. No perianal numbness. He is able to ambulate but this morning he woke up with shooting pain. He was also recently admitted to hospital for the same thing but was unfortunately readmitted for pain control. He has no constitutional symptoms. PAST MEDICAL HISTORY: Hypertension, diabetes, thoracic aneurysm. MEDICATIONS: ASA, Atorvastatin, gabapentin, losartan, metformin, naproxen, Percocet as needed, Januvia and tizanidine. ALLERGIES: No known drug allergies. PAST SURGICAL HISTORY: Mole removal. 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 Previously nonsmoker. PHYSICAL EXAMINATION: Vital signs: Temperature 98.8. Blood pressure 170/84, pulse rate of 57. 94% on room air. He is alert and oriented times three. He is quite pleasant and easy to interact with. He dripped a number time strength consultation. He looks comfortable aside from when he moves around and then it is extremely uncomfortable to his right lower extremity. He is lying supine in the hospital bed. Inspection of his lower lumbar spine reveals no obvious overlying redness, swelling, ecchymosis deformed entry. This no steps or gaps. The some midline tenderness. Normal perineal sensation. He has normal sensation throughout the left lower extremity from L2-S1. On the right lower extremity has slightly decreased sensation L4 nerve distribution more on the medial aspect of his lower leg, but seemingly normal throughout the foot. Motor exam of his lower extremities reveals full strength 05/05 from L2-S1 the left lower extremity. On the right lower extremity slightly diminished to hip flexion and extension representing L2-L3 as well as a very mild strength deficit to the ankle dorsiflexion and great toe extension with L4-L5. Strong 5/5 S1 with foot plantar flexion. Plantars were downgoing bilaterally. Normal pedal pulses. Evidence of clonus. Reflexes tested at the knees, ankles but unable to elicit those. Negative crossed straight leg raise test on the left. Positive straight leg raise test on the right approximately at approximately 35 degrees which caused some definite hip and groin and leg discomfort and shooting pains down his right leg. MRI was reviewed of the lumbar spine. This was performed on 12/17/2018. This demonstrates no evidence of epidural hematoma or abscess. There is a right foraminal L4-L5 disk protrusion producing nerve root compression again seen similar to his prior MRI of his lumbar spine from 12/04/2018. There is mild contrast enhancement in the epidural fat surrounding this and then the extraspinal soft tissues between L4 and L5 spinal processes versus the spinal canal. No abnormal fluid collection seen. ASSESSMENT/PLAN: This 63-year-old man appears to have a right-sided lumbar radiculopathy at L4-L5. This seems to be matching his clinical symptoms. We will work on controlling his pain. He had an epidural injection that apparently did not help him very much approximately 10 days ago. We will control his pain through other means in conjunction with the academic coach, Dr. Lema. Thank you very much for involving me in this man's care. I have also given him my card to make a follow-up with the [facility] and Dr. Shearer. I have let Dr. Shearer know about the consult and to see him on an outpatient basis. He should also have a consultation by the pain service to help manage this man's pain. I will not follow while in hospital.
[2018-12-23] MEDS: PERCOCET 5MG/325MG TAB PO PRN (19:35)
[2018-12-23] MEDS: ATORVASTATIN 20 MG TAB PO SCH (21:50)
[2018-12-23] MEDS: LOSARTAN 50 MG TAB PO SCH (21:52)
[2018-12-23 22:00] VITALS: BP 140/88
[2018-12-23] MEDS: HYDROMORPHONE HCL 0.5 MG/ 0.5 ML SYRINGE (J1170 PER 1) IV PRN (22:05)
--- NOTE | 2018-12-23 22:48 | HPEPDOC ---
General Date of Admission December 23, 2018 at 15:27 Chief Complaint The patient is a 63-year-old male admitted with a reason for visit of Acute Lum bar Radiculopathy. Source: Patient, Family, RN/MD, Old records History of Present Illness [id number] year old male with diabetes and hypertension has been having right groin, buttock pain radiating down the right leg from the beginning of November. He had an outpatient MRI for this done on the 12/04 which showed diffuse disc bulges at L3-4 and L4-L5 levels with minimal thecal sac compression. There is compression of the L4 nerve in the neural foramen. There is also diffuse disc bulge at the L5-S1 level . He was diagnosed with Acute lumber radiculopathy. He was started on oral pain meds, muscle relaxants and gabapentin without any relief so he had an epidural injection done by Dr Lomax on 12/12/18 as an outpatient. However this also did not relief the pain at all. He had been hobbling around and had not been able to stand up straight and had been unable to ambulate necessitating hospitalization for pain control. He was admitted here from 12/17 to 12/21 and his pain was successfully controlled with iv and oral medications. He had an MRI of the lumber spine done here during that hospitalization which did not show any cord compression or epidural abscess or hematoma. It showed Right foraminal L4-5 disc protrusion producing nerve root compression again seen. There is mild contrast enhancement in the epidural fat surrounding this and in the extra spinal soft tissues between the L4 and L5 spinous processes dorsal to the spinal canal. No abnormal fluid collection is seen. He was doing OK on 12/22 at home . He did go up and down the stairs for 2 times as his bedroom is upstairs. All night he did have discomfort in his right leg with some numbness some aching but he could move it without restriction. This morning he woke up and swung his legs to the side of the bed to get up and suddenly his right leg went into severe spasm. He could not straighten his leg. He hobbled to to the bathroom and then he could not keep standing any more he lay down on the bathroom floor turning, twisting, on his belly to find a position to relieve the spasm. It did ease a little and he called his and crawled from the bathroom to bedroom and crawled up into the bed and then the leg again katie into severe spasm and he was trapped in the bed unable to move to get out to even reach the phone. By this time his son came to check on him and called the EMS. He received a dose of morphine by the EMS and then toradol and valium in the ED which eased his muscle spasm. On my interview he complained of pain in his whole of the Right leg that was sometimes sharp some times burning , sometimes shooting going down his front and medical side of the leg and often his leg is going into spasms. Mostly from the hip and buttocks to the knee it was numb and muscle spasm while below the knee is was a burning kind of pain. He also complained of heaviness of his lower back and right buttock which was new today. Patient was admitted for Acute right lumber radiculopathy and inability to ambulate. Home Medications Scheduled Aspirin (Aspirin EC) 81 Mg Tablet.dr, 81 MG PO DAILY, (Reported) Atorvastatin Calcium (Atorvastatin Calcium) 40 Mg Tablet, 40 MG PO QHS, (Reported) Gabapentin (Gabapentin) 300 Mg Capsule, 300 MG PO TID, (Reported) Losartan Potassium (Losartan Potassium) 50 Mg Tablet, 50 MG PO DAILY, (Reported) AT RECENT DISCHARGE, THIS RX WAS CHANGED TO 100MG DAILY. HOWEVER, PHARMACY COULD NOT FILL THIS DUE TO INSURANCE PURPOSES SINCE HE HAD JUST GOTTEN 50MG FILLED. HE HAS BEEN TAKING 50MG AT HOME SINCE DISCHARGE Metformin HCl (Metformin HCl) 500 Mg Tablet, 1,000 MG PO BIDWM, (Reported) WITH BREAKFAST AND DINNER Naproxen (Naproxen) 500 Mg Tablet, 500 MG PO BID, (Reported) Sitagliptin Phosphate (Januvia) 100 Mg Tablet, 100 MG PO DAILY, (Reported) Tizanidine HCl (Tizanidine HCl) 2 Mg Tablet, 2 MG PO TID, (Reported) Scheduled PRN Oxycodone HCl/Acetaminophen (Oxycodone-Acetaminophen 5-325) 1 Each Tablet, 2 TAB PO Q8H PRN for PAIN, (Reported) Allergies Coded Allergies: No Known Drug Allergies (Verified Allergy, Unknown, 12/17/18) Past Medical History Medical History Diabetes, hypertension, thoracic Aortic aneurysm found in aug 2018 being monitored. Surgical History cataract surgery, epidural injection Family History Cancer (mother), Heart disease (father), Dementia mother, thyroid disease in father Social History * Smoker: Denies Alcohol: rarely Drugs: denies A-FIB/CHADSVASC A-FIB History Current/History of A-Fib/PAF?: No Review of Systems Constitutional: Denies: Chills, Fever, Night Sweats Eyes: Denies: Pain, Vision change ENT: Denies: Head Aches, Ear Pain, Dysphagia Skin: Denies: Rash, Lesions, Breakdown Pulmonary: Denies: Dyspnea, Cough Cardiovascular: Denies: Chest Pain, Palpitations, Orthopnea, Paroxysmal Noc. Dyspnea, Lt Headedness Gastrointestinal: Denies: Nausea, Vomiting, Abdominal Pain, Diarrhea Genitourinary: Denies: Dysuria, Frequency, Incontinence, Retention Hematologic: Denies: Bruising, Bleeding Excessively Musculoskeletal: Reports: Back Pain, Leg Pain (right), Muscle Pain (right leg), Spasms (right leg ) Neurological: Reports: Numbness (right thigh) Psych: Reports: Mood Normal; Denies: Depression, Memory Issues Physical Examination General Exam: Positive: Alert, Cooperative, No Acute Distress Eye Exam: Positive: PERRLA, Conjunctiva & lids normal, EOMI; Negative: Sclera icteric ENT Exam: Positive: Atraumatic, Mucous membr. moist/pink, Pharynx Normal Neck Exam: Positive: Supple; Negative: JVD, thyromegaly Chest Exam: Positive: Clear to auscultation, Normal air movement Heart Exam: Positive: Rate Normal, Regular Rhythm, Normal S1, Normal S2; Negative: Murmurs, Rubs Telemetry: Positive: Sinus, Bradycardia Abdomen Exam: Positive: Normal bowel sounds, Soft; Negative: Tenderness, Hepatospenomegaly Extremity Exam: Positive: Normal pulses; Negative: Clubbing, Cyanosis, Edema Skin Exam: Positive: Nl turgor and temperature; Negative: Breakdown, Lesion Neuro Exam: Positive: Normal Speech, Normal Tone, Cranial Nerves 3-12 NL, Other (increased DTRs on left leg. On right leg absent DTRs. decreased sensation in the right thigh. ) Psych Exam: Positive: Mental status NL, Mood NL, Oriented x 3 Vital Signs Vital Signs Date Time Temp Pulse Resp B/P (MAP) Pulse Ox O2 Delivery O2 Flow Rate FiO2 12/23/18 22:05 16 12/23/18 21:52 140/80 12/23/18 17:30 97.5 57 97 12/23/18 17:08 Room Air Laboratory Data Labs 24H Laboratory Tests 2 12/23/18 13:37: Immature Granulocyte % (Auto) 0.4, White Blood Count 7.7, Red Blood Count 4.93, Hemoglobin 14.4, Hematocrit 44.1, Mean Corpuscular Volume 89.5, Mean Corpuscular Hemoglobin 29.2, Mean Corpuscular Hemoglobin Concent 32.7, Red Cell Distribution Width 12.5, Platelet Count 168, Neutrophils (%) (Auto) 69.6H, Lymphocytes (%) (Auto) 20.7L, Monocytes (%) (Auto) 6.3H, Eosinophils (%) (Auto) 2.1, Basophils (%) (Auto) 0.9, Neutrophils # (Auto) 5.3, Lymphocytes # (Auto) 1.6, Monocytes # (Auto) 0.5, Eosinophils # (Auto) 0.2, Basophils # (Auto) 0.1, Nucleated Red Blood Cells % (auto) 0.0, Anion Gap 7L, Glomerular Filtration Rate > 60.0, Blood Urea Nitrogen 28H, Creatinine 1.20, Sodium Level 140, Potassium Level 4.4, Chloride Level 108H, Carbon Dioxide Level 25, Calcium Level 9.5 12/23/18 13:58: Urine Color MAMTA, Urine Appearance CLOUDYH, Urine pH 5.0, Urine Specific Bend 1.034, Urine Protein 1+H, Urine Glucose (UA) 1+H, Urine Ketones NEGATIVE, Urine Blood NEGATIVE, Urine Nitrite NEGATIVE, Urine Bilirubin NEG ATIVE, Urine Urobilinogen 0.2, Urine Leukocyte Esterase NEGATIVE, Urine WBC (Auto) 4H, Urine RBC (Auto) 0, Urine Hyaline Casts (Auto) 0, Urine Bacteria (Auto) NEGATIVE, Urine Squamous Epithelial Cells 3, Urine Mucus (Auto) LARGE, Urine Sperm (Auto) CBC/BMP Laboratory Tests 12/23/18 13:37 Red Blood Count 4.93, Mean Corpuscular Volume 89.5, Mean Corpuscular Hemoglobin 29.2, Mean Corpuscular Hemoglobin Concent 32.7, Red Cell Distribution Width 12.5, Neutrophils (%) (Auto) 69.6 H, Lymphocytes (%) (Auto) 20.7 L, Monocytes (%) (Auto) 6.3 H, Eosinophils (%) (Auto) 2.1, Basophils (%) (Auto) 0.9, Neutrophils # (Auto) 5.3, Lymphocytes # (Auto) 1.6, Monocytes # (Auto) 0.5, Eosinophils # (Auto) 0.2, Basophils # (Auto) 0.1, Calcium Level 9.5 Assessment/Plan 63 year old male with diabetes and hypertension has been having right groin, buttock pain radiating down the right leg from the beginning of November. He had an outpatient MRI for this done on the 12/04 which showed diffuse disc bulges at L3-4 and L4-L5 levels with minimal thecal sac compression. There is compression of the L4 nerve in the neural foramen. There is also diffuse disc bulge at the L5-S1 level . He was diagnosed with Acute lumber radiculopathy. He was started on oral pain meds, muscle relaxants and gabapentin without any relief so he had an epidural injection done by Dr Lomax on 12/12/18 as an outpatient. However this also did not relief the pain at all. He had been hobbling around and had not been able to stand up straight and had been unable to ambulate necessitating hospitalization for pain control. He was admitted here from 12/17 to 12/21 and his pain was successfully controlled with iv and oral medications. He had an MRI of the lumber spine done here during that hospitalization which did not show any cord compression or epidural abscess or hematoma. It showed Right foraminal L4-5 disc protrusion producing nerve root compression again seen. There is mild contrast enhancement in the epidural fat surrounding this and in the extra spinal soft tissues between the L4 and L5 spinous processes dorsal to the spinal canal. No abnormal fluid collection is seen. This morning he woke up and swung his legs to the side of the bed to get up and suddenly his right leg went into severe spasm. He could not straighten his leg. He was in severe pain with the leg in severe spasm. He could not stand up or ambulate nothing was relieving the pain so he was brought to the ED. He was then admitted fo acute lumber radiculopathy and inability to ambulate due to severe pain. Acute Lumber Radiculopathy with inability to ambulate. will give dialaudid 1 mg prn severe pain. under cardiac and respiratory monitoring. tizanidine, gabapentin and ibuprofen Consulted Dr Lomax from pain management. Consulted Ortho Sinus Bradycardia Asymptomatic noted in Telemetry. Diabetes continue januvia laipro as per sliding scale. Hypertension continue losartan 50 bid. will add amlodipine if needed. Hyperlipidemia on statin. DVT prophylaxis TEDS and SCDs Plan / VTE VTE Prophylaxis Ordered?: Yes JOSIAS PEARCE MD December 23, 2018 22:48
[2018-12-23] MEDS: IBUPROFEN 800 MG TAB PO SCH (23:38)
[2018-12-24] MEDS: HYDROMORPHONE HCL 0.5 MG/ 0.5 ML SYRINGE (J1170 PER 1) IV PRN ×5 (01:30→20:38)
[2018-12-24] MEDS ORDERED: LIDOCAINE 5% (LIDODERM) PATCH TD ONE (04:00)
[2018-12-24] MEDS: PERCOCET 5MG/325MG TAB PO PRN ×4 (04:14→22:15)
[2018-12-24 06:00] VITALS: BP 134/70
[2018-12-24 06:18] LABS: BASO # 0.1 10^3/uL (0.0-0.2); EOS # 0.2 10^3/uL (0.0-0.50); EOS % 3.8 % (0.0-3.0); HEMATOCRIT 44.2 % (42.0-52.0); HEMOGLOBIN 14.1 g/dl (13.5-17.5); LYMPH # 2.2 10^3/uL (1.5-4.5); LYMPH % 34.4 % (24.0-44.0); MEAN CORPUSCULAR HGB CONC 31.9 g/dl (32.0-36.5); MEAN CORPUSCULAR VOLUME 90.9 fl (80.0-96.0); MONO # 0.5 10^3/uL (0.0-0.8); MONO % 7.7 % (0.0-5.0); NEUTROPHILS # 3.3 10^3/uL (1.8-7.7); NEUTROPHILS % 52.8 % (36.0-66.0); PLATELET COUNT, AUTOMATED 175 10^3/uL (150-450); RED BLOOD COUNT 4.86 10^6/uL (4.30-6.10); WHITE BLOOD COUNT 6.3 10^3/uL (4.0-10.0)
[2018-12-24 06:34] LABS: BLOOD UREA NITROGEN 31 MG/DL (7-18); CALCIUM LEVEL 9.3 MG/DL (8.8-10.2); CARBON DIOXIDE LEVEL 28 MEQ/L (21-32); CHLORIDE LEVEL 106 MEQ/L (98-107); CREATININE FOR GFR 1.04 MG/DL (0.70-1.30); GLOMERULAR FILTRATION RATE > 60.0 (>49); GLUCOSE, FASTING 144 MG/DL (70-100); POTASSIUM SERUM 4.6 MEQ/L (3.5-5.1); SODIUM LEVEL 137 MEQ/L (136-145)
[2018-12-24] MEDS: GABAPENTIN 300 MG CAP PO SCH ×3 (08:33→20:27)
[2018-12-24] MEDS: PANTOPRAZOLE 40MG TAB (PROTONIX) PO SCH (08:33)
[2018-12-24] MEDS: LOSARTAN 50 MG TAB PO SCH ×2 (08:34→20:35)
[2018-12-24] MEDS: IBUPROFEN 800 MG TAB PO SCH (08:34)
[2018-12-24] MEDS: tiZANidine 4 MG TAB PO SCH ×3 (08:34→20:26)
[2018-12-24] MEDS: SITagliptin 50 MG TAB (JANUVIA) PO SCH (08:34)
[2018-12-24] MEDS ORDERED: LOSARTAN 50 MG TAB PO SCH (09:00)
[2018-12-24] MEDS ORDERED: HYDROMORPHONE HCL 0.5 MG/ 0.5 ML SYRINGE (J1170 PER 1) IV PRN (10:30)
[2018-12-24] MEDS ORDERED: PERCOCET 5MG/325MG TAB PO PRN (10:30)
[2018-12-24] MEDS: DICLOFENAC EPOLAMINE 1.3 % PATCH TOP SCH ×2 (12:02→21:00)
[2018-12-24 14:00] VITALS: BP 132/69
[2018-12-24] MEDS ORDERED: IBUPROFEN 600 MG TAB PO SCH (14:00)
[2018-12-24] MEDS: KETOROLAC TROMETHAMINE 10 MG TAB PO SCH ×2 (15:19→20:40)
--- NOTE | 2018-12-24 15:48 | CR ---
DATE OF CONSULTATION: 12/24/2018 CHIEF COMPLAINT: Right leg pain, paresthesia, and weakness. HISTORY OF PRESENT ILLNESS: Lex is a 63-year-old gentleman who has a history of right groin pain radiating down the right leg since the beginning of November. He had an epidural steroid injection, and that was unsuccessful. He was just discharged from the hospital for this same problem on December 21. While hospitalized, his pain was successfully controlled with intravenous (IV) and oral medications. He does have an MRI of the lumbosacral (LS) spine showing L4-5 right foraminal disc protrusion producing nerve root compression. Complaining of burning pain in the anterior right boyd. Complaining of his leg giving out on the right side and having to go down onto his knees. Today he is complaining of a level 7/10 right leg and groin pain. Currently using Dilaudid IV, steroid medication, Toradol, and muscle relaxant. He has had some episodes of bradycardia, where his medication, Dilaudid, had to be lowered, and this is the level that he seems to be able to tolerate. Denies bowel or bladder incontinence. ALLERGIES: No known drug allergies (NKDA). PAST MEDICAL HISTORY: 1. Diabetes. 2. Hypertension. 3. Thoracic aortic aneurysm. PAST SURGICAL HISTORY: Cataract surgery. SOCIAL HISTORY: Denies smoking. Alcohol use is rare. Denies illicit drug use. PHYSICAL EXAMINATION: Awake, alert, pleasant. VITAL SIGNS: 97.5, 56,16, blood pressure (BP) 134/70, oxygen saturations 96%. CARDIAC: S1, S2, slightly bradycardiac. RESPIRATORY: Lung sounds are clear. Respirations nonlabored. NEUROMUSCULAR: Muscle strength of the right leg is 2/5. Muscle strength over the left leg is 5/5. Reporting discomfort to light touch over right lower extremity from knee to ankle. Otherwise, normal sensation to light touch, lower extremities. Inspection of spine: Nontender with palpation of the LS spine and lumbosacral paraspinals. ASSESSMENT: 1. Lumbar disc protrusion. 2. Lumbosacral radiculopathy. 3. Weakness/paresthesias, right lower extremity. PLAN: Dr. Lomax and Dr. Lema had spoken earlier and developed the current medicine regimen. This seems to be controlling his pain at this point. Dr. Lomax had recommended a surgical consult, and I believe that is in place. May consider neurology evaluation. Thank you for allowing us to participate in the care of your patient. If you have any questions or concerns, please do not hesitate to contact our office.
[2018-12-24] MEDS ORDERED: **NOTE PATIENT COMMENT** MISC XX ONE (16:00)
--- NOTE | 2018-12-24 17:06 | IPNPDOC ---
Subjective Date Seen The patient was seen on 12/24/18. Subjective Chief Complaint/HPI This am patient's pain was not well controlled. He could not get any sleep last night as he was on cardiac and respiratory monitor. He was having persistent bradycardia so the monitor was going off repeatedly and the nurses were coming to check on him and waking him up. i explained that he was on a high dose of dilaudid so we have to monitor his his heart and respiration. He asked for his dosage to be lowered so that he can be off the monitor. Discussed with Dr Lomax a pain regimen and changed it a little to give better round the clock coverage. Objective Physical Examination General Exam: Positive: Alert, Cooperative, No Acute Distress Eye Exam: Positive: PERRLA, Conjunctiva & lids normal, EOMI; Negative: Sclera icteric ENT Exam: Positive: Atraumatic, Mucous membr. moist/pink, Pharynx Normal Neck Exam: Positive: Supple; Negative: JVD, thyromegaly Chest Exam: Positive: Clear to auscultation, Normal air movement Heart Exam: Positive: Rate Normal, Regular Rhythm, Normal S1, Normal S2; Negative: Murmurs, Rubs Telemetry: Positive: Sinus, Bradycardia Abdomen Exam: Positive: Normal bowel sounds, Soft; Negative: Tenderness, Hepatospenomegaly Extremity Exam: Positive: Normal pulses; Negative: Clubbing, Cyanosis, Edema Skin Exam: Positive: Nl turgor and temperature; Negative: Breakdown, Lesion Neuro Exam: Positive: Normal Speech, Normal Tone, Cranial Nerves 3-12 NL, Other (increased DTRs on left leg. On right leg absent DTRs. decreased sensation in the right thigh. ) Psych Exam: Positive: Mental status NL, Mood NL, Oriented x 3 Assessment /Plan Assessment 63 year old male with diabetes and hypertension has been having right groin, buttock pain radiating down the right leg from the beginning of November. He had an outpatient MRI for this done on the 12/04 which showed diffuse disc bulges at L3-4 and L4-L5 levels with minimal thecal sac compression. There is compression of the L4 nerve in the neural foramen. There is also diffuse disc bulge at the L5-S1 level . He was diagnosed with Acute lumber radiculopathy. He was started on oral pain meds, muscle relaxants and gabapentin without any relief so he had an epidural injection done by Dr Lomax on 12/12/18 as an outpatient. However t his also did not relief the pain at all. He had been hobbling around and had not been able to stand up straight and had been unable to ambulate necessitating hospitalization for pain control. He was admitted here from 12/17 to 12/21 and his pain was successfully controlled with iv and oral medications. He had an MRI of the lumber spine done here during that hospitalization which did not show any co rd compression or epidural abscess or hematoma. It showed Right foraminal L4-5 disc protrusion producing nerve root compression again seen. There is mild contrast enhancement in the epidural fat surrounding this and in the extra spinal soft tissues between the L4 and L5 spinous processes dorsal to the spinal canal. No abnormal fluid collection is seen. This morning he woke up and swung his legs to the side of the bed to get up and suddenly his right leg went into severe spasm. He could not straighten his leg. He was in severe pain with the leg in severe spasm. He could not stand up or ambulate nothing was relieving the pain so he was brought to the ED. He was then admitted fo acute lumber radiculopathy and inability to ambulate due to severe pain. Acute Lumber Radiculopathy with inability to ambulate. continue Dilaudid as per nonmonitored area dosage, toradol po, percocet and tizanidine. will also give flector patch and lidoderm patch. Consulted Dr Lomax from pain management. Consulted Ortho Sinus Bradycardia Asymptomatic noted in Telemetry. Diabetes continue januvia laipro as per sliding scale. Hypertension continue losartan 50 bid. will add amlodipine if needed. Hyperlipidemia on statin. DVT prophylaxis TEDS and SCDs Plan/VTE VTE Prophylaxis Ordered?: Yes VS, I&O, 24H, Fishbone Vital Signs/I&O Vital Signs Date Time Temp Pulse Resp B/P (MAP) Pulse Ox O2 Delivery O2 Flow Rate FiO2 12/24/18 14:18 16 12/24/18 14:00 96.7 63 132/69 (90) 97 12/23/18 17:08 Room Air I&O- Last 24 Hours up to 6 AM 12/24/18 06:00 Intake Total 610 ml Balance 610 ml Laboratory Data 24H LABS Laboratory Tests 2 12/24/18 05:48: Immature Granulocyte % (Auto) 0.3, White Blood Count 6.3, Red Blood Count 4.86, Hemoglobin 14.1, Hematocrit 44.2, Mean Corpuscular Volume 90.9, Mean Corpuscular Hemoglobin 29.0, Mean Corpuscular Hemoglobin Concent 31.9L, Red Cell Distribution Width 12.7, Platelet Count 175, Neutrophils (%) (Auto) 52.8, Lymphocytes (%) (Auto) 34.4, Monocytes (%) (Auto) 7.7H, Eosinophils (%) (Auto) 3.8H, Basophils (%) (Auto) 1.0, Neutrophils # (Auto) 3.3, Lymphocytes # (Auto) 2.2, Monocytes # (Auto) 0.5, Eosinophils # (Auto) 0.2, Basophils # (Auto) 0.1, Nucleated Red Blood Cells % (auto) 0.0, Anion Gap 3L, Glomerular Filtration Rate > 60.0, Blood Urea Nitrogen 31H, Creatinine 1.04, Sodium Level 137, Potassium Level 4.6, Chloride Level 106, Carbon Dioxide Level 28, Calcium Level 9.3 CBC/BMP Laboratory Tests 12/24/18 05:48 Red Blood Count 4.86, Mean Corpuscular Volume 90.9, Mean Corpuscular Hemoglobin 29.0, Mean Corpuscular Hemoglobin Concent 31.9 L, Red Cell Distribution Width 12.7, Neutrophils (%) (Auto) 52.8, Lymphocytes (%) (Auto) 34.4, Monocytes (%) (Auto) 7.7 H, Eosinophils (%) (Auto) 3.8 H, Basophils (%) (Auto) 1.0, Neutro phils # (Auto) 3.3, Lymphocytes # (Auto) 2.2, Monocytes # (Auto) 0.5, Eosinophils # (Auto) 0.2, Basophils # (Auto) 0.1, Calcium Level 9.3 JOSIAS PEARCE MD December 24, 2018 17:06
[2018-12-24] MEDS: ATORVASTATIN 20 MG TAB PO SCH (20:26)
[2018-12-24] MEDS: methylPREDNISolone 4 MG TAB PO SCH (22:16)
[2018-12-25 06:00] VITALS: BP 143/82
[2018-12-25 06:01] LABS: BASO % 0.6 % (0.0-1.0); EOS # 0.1 10^3/uL (0.0-0.50); EOS % 1.1 % (0.0-3.0); HEMATOCRIT 42.6 % (42.0-52.0); HEMOGLOBIN 13.8 g/dl (13.5-17.5); LYMPH # 1.1 10^3/uL (1.5-4.5); MEAN CORPUSCULAR HEMOGLOBIN 28.6 pg (27.0-33.0); MEAN CORPUSCULAR HGB CONC 32.4 g/dl (32.0-36.5); MEAN CORPUSCULAR VOLUME 88.2 fl (80.0-96.0); MONO # 0.3 10^3/uL (0.0-0.8); MONO % 4.4 % (0.0-5.0); NEUTROPHILS # 4.8 10^3/uL (1.8-7.7); NEUTROPHILS % 76.6 % (36.0-66.0); PLATELET COUNT, AUTOMATED 169 10^3/uL (150-450); RED BLOOD COUNT 4.83 10^6/uL (4.30-6.10); WHITE BLOOD COUNT 6.3 10^3/uL (4.0-10.0)
[2018-12-25 06:21] LABS: BLOOD UREA NITROGEN 32 MG/DL (7-18); CALCIUM LEVEL 9.1 MG/DL (8.8-10.2); CARBON DIOXIDE LEVEL 27 MEQ/L (21-32); CHLORIDE LEVEL 107 MEQ/L (98-107); CREATININE FOR GFR 1.12 MG/DL (0.70-1.30); GLOMERULAR FILTRATION RATE > 60.0 (>49); GLUCOSE, FASTING 164 MG/DL (70-100); POTASSIUM SERUM 4.8 MEQ/L (3.5-5.1); SODIUM LEVEL 138 MEQ/L (136-145)
[2018-12-25] MEDS: PERCOCET 5MG/325MG TAB PO PRN ×4 (06:25→22:50)
--- NOTE | 2018-12-25 09:03 | IPNPDOC ---
Subjective Date Seen The patient was seen on 12/25/18. Subjective Chief Complaint/HPI Patient's pain is much better controlled this morning. He is satisfied with the current pain regimen he is on. Objective Physical Examination General Exam: Positive: Alert, Cooperative, No Acute Distress Eye Exam: Positive: PERRLA, Conjunctiva & lids normal, EOMI; Negative: Sclera icteric ENT Exam: Positive: Atraumatic, Mucous membr. moist/pink, Pharynx Normal Neck Exam: Positive: Supple; Negative: JVD, thyromegaly Chest Exam: Positive: Clear to auscultation, Normal air movement Heart Exam: Positive: Rate Normal, Regular Rhythm, Normal S1, Normal S2; Negative: Murmurs, Rubs Telemetry: Positive: Sinus, Bradycardia Abdomen Exam: Positive: Normal bowel sounds, Soft; Negative: Tenderness, Hepatospenomegaly Extremity Exam: Positive: Normal pulses; Negative: Clubbing, Cyanosis, Edema Skin Exam: Positive: Nl turgor and temperature; Negative: Breakdown, Lesion Neuro Exam: Positive: Normal Speech, Normal Tone, Cranial Nerves 3-12 NL, Other (increased DTRs on left leg. On right leg absent DTRs. decreased sensation in the right thigh. ) Psych Exam: Positive: Mental status NL, Mood NL, Oriented x 3 Assessment /Plan Assessment 63 year old male with diabetes and hypertension has been having right groin, buttock pain radiating down the right leg from the beginning of November. He had an outpatient MRI for this done on the 12/04 which showed diffuse disc bulges at L3-4 and L4-L5 levels with minimal thecal sac compression. There is compression of the L4 nerve in the neural foramen. There is also diffuse disc bulge at the L5-S1 level . He was diagnosed with Acute lumber radiculopathy. He was started on oral pain meds, muscle relaxants and gabapentin without any relief so he had an epidural injection done by Dr Lomax on 12/12/18 as an outpatient. However this also did not relief the pain at all. He had been hobbling around and had not been able to stand up straight and had been unable to ambulate necessitating hospitalization for pain control. He was admitted here from 12/17 to 12/21 and his pain was successfully controlled with iv and oral medications. He had an MRI of the lumber spine done here during that hospitalization which did not show any cord compression or epidural abscess or hematoma. It showed Right foraminal L4-5 disc protrusion producing nerve root compression again seen. There is mild contrast enhancement in the epidural fat surrounding this and in the extra spinal soft tissues between the L4 and L5 spinous processes dorsal to the spinal canal. No abnormal fluid collection is seen. This morning he woke up and swung his legs to the side of the bed to get up and suddenly his right leg went into severe spasm. He could not straighten his leg. He was in severe pain with the leg in severe spasm. He could not stand up or ambulate nothing was relieving the pain so he was brought to the ED. He was then admitted fo acute lumber radiculopathy and inability to ambulate due to severe pain. Acute Lumber Radiculopathy with inability to ambulate. his pain is better controlled and he needed 1 dose of Dilaudid last evening. nothing after that ovenight. continue Dilaudid as per non monitored area dosage, percocet and tizanidine. will also give flector patch and lidoderm patch. He has been started on medrol patch Consulted Dr Lomax from pain management. Consulted Ortho Sinus Bradycardia Asymptomatic noted in Telemetry. Diabetes continue januvia laipro as per sliding scale. Hypertension continue losartan 50 bid. will add amlodipine if needed. Hyperlipidemia on statin. DVT prophylaxis TEDS and SCDs Plan/VTE VTE Prophylaxis Ordered?: Yes VS, I&O, 24H, Fishbone Vital Signs/I&O Vital Signs Date Time Temp Pulse Resp B/P (MAP) Pulse Ox O2 Delivery O2 Flow Rate FiO2 12/25/18 06:25 18 12/25/18 06:00 97.9 56 143/82 (102) 96 12/23/18 17:08 Room Air I&O- Last 24 Hours up to 6 AM 12/25/18 06:00 Intake Total 360 ml Balance 360 ml Laboratory Data 24H LABS Laboratory Tests 2 12/25/18 05:32: Immature Granulocyte % (Auto) 0.3, White Blood Count 6.3, Red Blood Count 4.83, Hemoglobin 13.8, Hematocrit 42.6, Mean Corpuscular Volume 88.2, Mean Corpuscular Hemoglobin 28.6, Mean Corpuscular Hemoglobin Concent 32.4, Red Cell Distribution Width 12.5, Platelet Count 169, Neutrophils (%) (Auto) 76.6H, Lymphocytes (%) (Auto) 17.0L, Monocytes (%) (Auto) 4.4, Eosinophils (%) (Auto) 1.1, Basophils (%) (Auto) 0.6, Neutrophils # (Auto) 4.8, Lymphocytes # (Auto) 1.1L, Monocytes # (Auto) 0.3, Eosinophils # (Auto) 0.1, Basophils # (Auto) 0.0, Nucleated Red Bloo d Cells % (auto) 0.0, Anion Gap 4L, Glomerular Filtration Rate > 60.0, Blood Urea Nitrogen 32H, Creatinine 1.12, Sodium Level 138, Potassium Level 4.8, Chloride Level 107, Carbon Dioxide Level 27, Calcium Level 9.1 CBC/BMP Laboratory Tests 12/25/18 05:32 Red Blood Count 4.83, Mean Corpuscular Volume 88.2, Mean Corpuscular Hemoglobin 28.6, Mean Corpuscular Hemoglobin Concent 32.4, Red Cell Distribution Width 12.5, Neutrophils (%) (Auto) 76.6 H, Lymphocytes (%) (Auto) 17.0 L, Monocytes (%) (Auto) 4.4, Eosinophils (%) (Auto) 1.1, Basophils (%) (Auto) 0.6, Neutrophils # (Auto) 4.8, Lymphocytes # (Auto) 1.1 L, Monocytes # (Auto) 0.3, Eosinophils # (Auto) 0.1, Basophils # (Auto) 0.0, Calcium Level 9.1 JOSIAS PEARCE MD December 25, 2018 09:03
[2018-12-25] MEDS: methylPREDNISolone 4 MG TAB PO SCH ×3 (09:18→22:04)
[2018-12-25] MEDS: PANTOPRAZOLE 40MG TAB (PROTONIX) PO SCH (09:18)
[2018-12-25] MEDS: SITagliptin 50 MG TAB (JANUVIA) PO SCH (09:19)
[2018-12-25] MEDS: LOSARTAN 50 MG TAB PO SCH ×2 (09:19→22:04)
[2018-12-25] MEDS: DICLOFENAC EPOLAMINE 1.3 % PATCH TOP SCH ×2 (09:19→22:05)
[2018-12-25] MEDS: tiZANidine 4 MG TAB PO SCH ×3 (09:19→22:03)
[2018-12-25] MEDS: GABAPENTIN 300 MG CAP PO SCH ×3 (09:19→22:03)
[2018-12-25 10:43] VITALS: BP 140/70
[2018-12-25 14:00] VITALS: BP 142/69
[2018-12-25 22:00] VITALS: BP 128/66
[2018-12-25] MEDS: ATORVASTATIN 20 MG TAB PO SCH (22:03)
[2018-12-26] MEDS: PERCOCET 5MG/325MG TAB PO PRN ×4 (04:05→17:13)
[2018-12-26] MEDS: methylPREDNISolone 4 MG TAB PO SCH ×5 (05:48→21:38)
[2018-12-26 06:00] VITALS: BP 118/67
[2018-12-26 06:05] LABS: BASO % 0.5 % (0.0-1.0); EOS % 0.1 % (0.0-3.0); HEMOGLOBIN 13.2 g/dl (13.5-17.5); LYMPH # 1.2 10^3/uL (1.5-4.5); LYMPH % 15.5 % (24.0-44.0); MEAN CORPUSCULAR HEMOGLOBIN 28.6 pg (27.0-33.0); MEAN CORPUSCULAR VOLUME 86.8 fl (80.0-96.0); MONO # 0.4 10^3/uL (0.0-0.8); MONO % 4.8 % (0.0-5.0); NEUTROPHILS # 6.2 10^3/uL (1.8-7.7); NEUTROPHILS % 78.6 % (36.0-66.0); PLATELET COUNT, AUTOMATED 166 10^3/uL (150-450); RED BLOOD COUNT 4.61 10^6/uL (4.30-6.10); WHITE BLOOD COUNT 7.9 10^3/uL (4.0-10.0)
[2018-12-26 06:13] LABS: BLOOD UREA NITROGEN 31 MG/DL (7-18); CALCIUM LEVEL 9.1 MG/DL (8.8-10.2); CARBON DIOXIDE LEVEL 26 MEQ/L (21-32); CHLORIDE LEVEL 106 MEQ/L (98-107); CREATININE FOR GFR 1.06 MG/DL (0.70-1.30); GLOMERULAR FILTRATION RATE > 60.0 (>49); GLUCOSE, FASTING 184 MG/DL (70-100); POTASSIUM SERUM 4.2 MEQ/L (3.5-5.1); SODIUM LEVEL 138 MEQ/L (136-145)
[2018-12-26] MEDS: PANTOPRAZOLE 40MG TAB (PROTONIX) PO SCH (08:13)
[2018-12-26] MEDS: SITagliptin 50 MG TAB (JANUVIA) PO SCH (08:13)
[2018-12-26] MEDS: GABAPENTIN 300 MG CAP PO SCH (08:13)
[2018-12-26] MEDS: LOSARTAN 50 MG TAB PO SCH ×2 (08:13→21:39)
[2018-12-26] MEDS: tiZANidine 4 MG TAB PO SCH ×3 (08:13→21:38)
[2018-12-26] MEDS: DICLOFENAC EPOLAMINE 1.3 % PATCH TOP SCH ×2 (08:14→21:40)
--- NOTE | 2018-12-26 12:08 | IPNPDOC ---
Subjective Date Seen The patient was seen on 12/26/18. Subjective Chief Complaint/HPI Patient just complains of an aching pain in his right hips and right thigh but no more muscle spasms and he is not in excruciating pain any more and has been ambulating to the bathroom. He has worked with PT today and done some stairs too. No fever or chills, no chest pain or sob , no abdominal pain , nausea or vomiting. Had a bowel movement after admission Objective Physical Examination General Exam: Positive: Alert, Cooperative, No Acute Distress Eye Exam: Positive: PERRLA, Conjunctiva & lids normal, EOMI; Negative: Sclera icteric ENT Exam: Positive: Atraumatic, Mucous membr. moist/pink, Pharynx Normal Neck Exam: Positive: Supple; Negative: JVD, thyromegaly Chest Exam: Positive: Clear to auscultation, Normal air movement Heart Exam: Positive: Rate Normal, Regular Rhythm, Normal S1, Normal S2; Negative: Murmurs, Rubs Telemetry: Positive: Sinus, Bradycardia Abdomen Exam: Positive: Normal bowel sounds, Soft; Negative: Tenderness, Hepatospenomegaly Extremity Exam: Positive: Normal pulses; Negative: Clubbing, Cyanosis, Edema Skin Exam: Positive: Nl turgor and temperature; Negative: Breakdown, Lesion Neuro Exam: Positive: Normal Speech, Normal Tone, Cranial Nerves 3-12 NL, Other (increased DTRs on left leg. On right leg absent DTRs. decreased sensation in the right thigh. ) Psych Exam: Positive: Mental status NL, Mood NL, Oriented x 3 Assessment /Plan Assessment 63 year old male with diabetes and hypertension has been having right groin, buttock pain radiating down the right leg from the beginning of November. He had an outpatient MRI for this done on the 12/04 which showed diffuse disc bulges at L3-4 and L4-L5 levels with minimal thecal sac compression. There is compression of the L4 nerve in the neural foramen. There is also diffuse disc bulge at the L5-S1 level . He was diagnosed with Acute lumber radiculopathy. He was started on oral pain meds, muscle relaxants and gabapentin without any relief so he had an epidural injection done by Dr Lomax on 12/12/18 as an outpatient. However this also did not relief the pain at all. He had been hobbling around and had not been able to stand up straight and had been unable to ambulate necessitating hospitalization for pain control. He was admitted here from 12/17 to 12/21 and his pain was successfully controlled with iv and oral medications. He had an MRI of the lumber spine done here during that hospitalization which did not show any cord compression or epidural abscess or hematoma. It showed Right foraminal L4-5 disc protrusion producing nerve root compression again seen. There is mild contrast enhancement in the epidural fat surrounding this and in the extra spinal soft tissues between the L4 and L5 spinous processes dorsal to the spinal canal. No abnormal fluid collection is seen. This morning he woke up and swung his legs to the side of the bed to get up and suddenly his right leg went into severe spasm. He could not straighten his leg. He was in severe pain with the leg in severe spasm. He could not stand up or ambulate nothing was relieving the pain so he was brought to the ED. He was then admitted fo acute lumber radiculopathy and inability to ambulate due to severe pain. Acute Lumber Radiculopathy with inability to ambulate. Pateint's pain is well ocntrolled has not needed any dilaudid for more than 36 hours. continue Dilaudid as per non monitored area dosage prn. percocet and tizanidine. will also give flector patch and lidoderm patch. He has been started on medrol patch consulted Dr Lomax. Consulted Ortho PT consulted. Sinus Bradycardia Asymptomatic noted in Telemetry. Diabetes continue januvia lispro as per sliding scale. Hypertension continue losartan 50 bid. will add amlodipine if needed. Hyperlipidemia on statin. DVT prophylaxis TEDS and SCDs Plan/VTE VTE Prophylaxis Ordered?: Yes VS, I&O, 24H, Fishbone Vital Signs/I&O Vital Signs Date Time Temp Pulse Resp B/P (MAP) Pulse Ox O2 Delivery O2 Flow Rate FiO2 12/26/18 08:44 16 12/26/18 08:13 120/67 12/26/18 06:00 97.0 52 97 12/23/18 17:08 Room Air I&O- Last 24 Hours up to 6 AM0 12/26/18 06:00 Intake Total 1320 ml Output Total 0 ml Balance 1320 ml Laboratory Data 24H LABS Laboratory Tests 2 12/26/18 05:25: Immature Granulocyte % (Auto) 0.5, White Blood Count 7.9, Red Blood Count 4.61, Hemoglobin 13.2L, Hematocrit 40.0L, Mean Corpuscular Volume 86.8, Mean Corpuscular Hemoglobin 28.6, Mean Corpuscular Hemoglobin Concent 33.0, Red Cell Distribution Width 12.4, Platelet Count 166, Neutrophils (%) (Auto) 78.6H, Lymphocytes (%) (Auto) 15.5L, Monocytes (%) (Auto) 4.8, Eosinophils (%) (Auto) 0.1, Basophils (%) (Auto) 0.5, Neutrophils # (Auto) 6.2, Lymphocytes # (Auto) 1.2L, Monocytes # (Auto) 0.4, Eosinophils # (Auto) 0.0, Basophils # (Auto) 0.0, Nucleated Red Blood Cells % (auto) 0.0, Anion Gap 6L, Glomerular Filtration Rate > 60.0, Blood Urea Nitrogen 31H, Creatinine 1.06, Sodium Level 138, Potassium Level 4.2, Chloride Level 106, Carbon Dioxide Level 26, Calcium Level 9.1 CBC/BMP Laboratory Tests 12/26/18 05:25 Red Blood Count 4.61, Mean Corpuscular Volume 86.8, Mean Corpuscular Hemoglobin 28.6, Mean Corpuscular Hemoglobin Concent 33.0, Red Cell Distribution Width 12.4, Neutrophils (%) (Auto) 78.6 H, Lymphocytes (%) (Auto) 15.5 L, Monocytes (%) (Auto) 4.8, Eosinophils (%) (Auto) 0.1, Basophils (%) (Auto) 0.5, Neutrophils # (Auto) 6.2, Lymphocytes # (Auto) 1.2 L, Monocytes # (Auto) 0.4, Eosinophils # (Auto) 0.0, Basophils # (Auto) 0.0, Calcium Level 9.1 JOSIAS PEARCE MD December 26, 2018 12:08
[2018-12-26 14:00] VITALS: BP 145/74
[2018-12-26] MEDS: GABAPENTIN 400 MG CAP PO SCH ×2 (17:13→21:38)
[2018-12-26] MEDS: ATORVASTATIN 20 MG TAB PO SCH (21:38)
[2018-12-26 22:00] VITALS: BP 138/76
[2018-12-27 05:48] LABS: BASO % 0.4 % (0.0-1.0); EOS % 0.3 % (0.0-3.0); HEMATOCRIT 40.7 % (42.0-52.0); HEMOGLOBIN 13.3 g/dl (13.5-17.5); LYMPH # 1.5 10^3/uL (1.5-4.5); LYMPH % 18.6 % (24.0-44.0); MEAN CORPUSCULAR HEMOGLOBIN 28.5 pg (27.0-33.0); MEAN CORPUSCULAR HGB CONC 32.7 g/dl (32.0-36.5); MEAN CORPUSCULAR VOLUME 87.2 fl (80.0-96.0); MONO # 0.5 10^3/uL (0.0-0.8); MONO % 6.2 % (0.0-5.0); NEUTROPHILS # 5.8 10^3/uL (1.8-7.7); NEUTROPHILS % 73.9 % (36.0-66.0); PLATELET COUNT, AUTOMATED 188 10^3/uL (150-450); RED BLOOD COUNT 4.67 10^6/uL (4.30-6.10); WHITE BLOOD COUNT 7.9 10^3/uL (4.0-10.0)
[2018-12-27 06:00] VITALS: BP 137/76
[2018-12-27 06:15] LABS: BLOOD UREA NITROGEN 27 MG/DL (7-18); CARBON DIOXIDE LEVEL 28 MEQ/L (21-32); CHLORIDE LEVEL 106 MEQ/L (98-107); CREATININE FOR GFR 1.11 MG/DL (0.70-1.30); GLOMERULAR FILTRATION RATE > 60.0 (>49); GLUCOSE, FASTING 182 MG/DL (70-100); SODIUM LEVEL 140 MEQ/L (136-145)
[2018-12-27] MEDS: PANTOPRAZOLE 40MG TAB (PROTONIX) PO SCH (09:14)
[2018-12-27] MEDS: tiZANidine 4 MG TAB PO SCH ×2 (09:15→15:57)
[2018-12-27 09:17] VITALS: BP 133/67
[2018-12-27] MEDS: LOSARTAN 50 MG TAB PO SCH (09:17)
[2018-12-27] MEDS: SITagliptin 50 MG TAB (JANUVIA) PO SCH (09:18)
[2018-12-27] MEDS: GABAPENTIN 400 MG CAP PO SCH ×2 (09:18→15:57)
[2018-12-27] MEDS: methylPREDNISolone 4 MG TAB PO SCH ×2 (09:18→13:05)
[2018-12-27] MEDS: DICLOFENAC EPOLAMINE 1.3 % PATCH TOP SCH (09:54)
[2018-12-27] MEDS ORDERED: TIZA4TAB4 PO (11:12)
[2018-12-27] MEDS ORDERED: DICL13PA TOP (11:12)
[2018-12-27] MEDS ORDERED: GABA-845 PO (11:12)
[2018-12-27] MEDS ORDERED: MEDR4TAB PO (12:38)
[2018-12-27 14:00] VITALS: BP 152/74
--- NOTE | 2018-12-27 17:12 | DS.PDOC ---
Discharge Summary General Date of Admission December 23, 2018 at 15:27 Date of Discharge 12/27/18 Attending Physician: LEENA SHAY MD Specialist/Consultants Involve: ELSIE ALMEIDA MD Specialist/Consultants Involve Dr Lomax Discharge Summary PROCEDURES PERFORMED DURING STAY: lumber spine steroid injection ADMITTING DIAGNOSES: 1. L4-5 disc herniation 2. Right sciatic nerve pain DISCHARGE DIAGNOSES: 1. right sciatic nerve pain due to L4-5 disc herniation 2. HTN 3. DM T2 COMPLICATIONS/CHIEF COMPLAINT: Acute Lumbar Radiculopathy. HISTORY OF PRESENT ILLNESS: 63 year old male with diabetes and hypertension has been having right groin, buttock pain radiating down the right leg from the beginning of November. He had an outpatient MRI for this done on the 12/04 which showed diffuse disc bulges at L3-4 and L4-L5 levels with minimal thecal sac compression. There is compression of the L4 nerve in the neural foramen. There is also diffuse disc bulge at the L5-S1 level . He was diagnosed with Acute lumber radiculopathy. He was started on oral pain meds, muscle relaxants and gabapentin without any relief so he had an epidural injection done by Dr Lomax on 12/12/18 as an outpatient. However this also did not relief the pain at all. He had been hobbling around and had not been able to stand up straight and had been unable to ambulate necessitating hospitalization for pain control. He was admitted here from 12/17 to 12/21 and his pain was successfully controlled with iv and oral medications. He had an MRI of the lumber spine done here during that hospitalization which did not show any cord compression or epidural abscess or hematoma. It showed Right foraminal L4-5 disc protrusion producing nerve root compression again seen. There is mild contrast enhancement in the epidural fat surrounding this and in the extra spinal soft tissues between the L4 and L5 spinous processes dorsal to the spinal canal. No abnormal fluid collection is seen. He was doing OK on 12/22 at home . He did go up and down the stairs for 2 times as his bedroom is upstairs. All night he did have discomfort in his right leg with some numbness some aching but he could move it without restriction. This morning he woke up and swung his legs to the side of the bed to get up and suddenly his right leg went into severe spasm. He could not straighten his leg. He hobbled to to the bathroom and then he could not keep standing any more he lay down on the bathroom floor turning, twisting, on his belly to find a position to relieve the spasm. It did ease a l ittle and he called his and crawled from the bathroom to bedroom and crawled up into the bed and then the leg again katie into severe spasm and he was trapped in the bed unable to move to get out to even reach the phone. By this time his son came to check on him and called the EMS. He received a dose of morphine by the EMS and then toradol and valium in the ED which eased his muscle spasm. On my interview he complained of pain in his whole of the Right leg that was sometimes sharp some times burning , sometimes shooting going down his front and medical side of the leg and often his leg is going into spasms. Mostly from the hip and buttocks to the knee it was numb and muscle spasm while below the knee is was a burning kind of pain. He also complained of heaviness of his lower back and right buttock which was new today. Patient was admitted for Acute right lumber radiculopathy and inability to ambulate. HOSPITAL COURSE: After admission, he has lumber spine MRI which showed L4-5 disc bulging. he was consulted with ortho as well as pain specialist. Dr Torres from pain did lumber spine steroid injection; meanwhile, he was treated medically and got PT treatment too. he responded well and low back with right leg pain is controlled reasonable and he can ambulate well. after discharge, he will follow with ortho as well as pain clinic. DISCHARGE MEDICATIONS: Please see below. ALLERGIES: Please see below. PHYSICAL EXAMINATION ON DISCHARGE: VITAL SIGNS: Please see below. GENERAL: AA Ox3, not in acute distress HEENT: atraumatic NECK: no JVD CARDIOVASCULAR EXAMINATION: S1S2 regular no murmur RESPIRATORY EXAMINATION: clear, no wheezing no rales ABDOMINAL EXAMINATION:soft BS +, non tender EXTREMITIES: no edema SKIN: no rash NEUROLOGICAL EXAMINATION: non focal PSYCHIATRIC EXAMINATION: no acute psychosis LABORATORY DATA: Please see below. IMAGING: Lumber MRI PROGNOSIS: fair ACTIVITY: as tolerated DIET: cardiac diet DISCHARGE PLAN: home DISPOSITION: 01 Home, Self-Care. DISCHARGE INSTRUCTIONS: to take medicines as prescribed ITEMS TO FOLLOWUP ON ON OUTPATIENT: 1. follow with ortho as well as pain clinic DISCHARGE CONDITION:stable TIME SPENT ON DISCHARGE: Greater than 35 min Vital Signs/I&Os Vital Signs Date Time Temp Pulse Resp B/P (MAP) Pulse Ox O2 Delivery O2 Flow Rate FiO2 12/27/18 14:00 98.0 62 18 152/74 (100) 94 12/23/18 17:08 Room Air I&O- Last 24 Hours up to 6 AM 12/27/18 06:00 Intake Total 1475 ml Output Total 0 ml Balance 1475 ml Laboratory Data Labs 24H Laboratory Tests 2 12/27/18 05:24: Immature Granulocyte % (Auto) 0.6, White Blood Count 7.9, Red Blood Count 4.67, Hemoglobin 13.3L, Hematocrit 40.7L, Mean Corpuscular Volume 87.2, Mean Corpuscular Hemoglobin 28.5, Mean Corpuscular Hemoglobin Concent 32.7, Red Cell Distribution Width 12.5, Platelet Count 188, Neutrophils (%) (Auto) 73.9H, Lymphocytes (%) (Auto) 18.6L, Monocytes (%) (Auto) 6.2H, Eosinophils (%) (Auto) 0.3, Basophils (%) (Auto) 0.4, Neutrophils # (Auto) 5.8, Lymphocytes # (Auto) 1.5, Monocytes # (Auto) 0.5, Eosinophils # (Auto) 0.0, Basophils # (Auto) 0.0, Nucleated Red Blood Cells % (auto) 0.0, Anion Gap 6L, Glomerular Filtration Rate > 60.0, Blood Urea Nitrogen 27H, Creatinine 1.11, Sodium Level 140, Potassium Level 4.0, Chloride Level 106, Carbon Dioxide Level 28, Calcium Level 9.0 CBC/BMP Laboratory Tests 12/27/18 05:24 Red Blood Count 4.67, Mean Corpuscular Volume 87.2, Mean Corpuscular Hemoglobin 28.5, Mean Corpuscular Hemoglobin Concent 32.7, Red Cell Distribution Width 12. 5, Neutrophils (%) (Auto) 73.9 H, Lymphocytes (%) (Auto) 18.6 L, Monocytes (%) (Auto) 6.2 H, Eosinophils (%) (Auto) 0.3, Basophils (%) (Auto) 0.4, Neutrophils # (Auto) 5.8, Lymphocytes # (Auto) 1.5, Monocytes # (Auto) 0.5, Eosinophils # (Auto) 0.0, Basophils # (Auto) 0.0, Calcium Level 9.0 Discharge Medications Scheduled Aspirin (Aspirin EC) 81 Mg Tablet.dr, 81 MG PO DAILY, (Reported) Atorvastatin Calcium (Atorvastatin Calcium) 40 Mg Tablet, 40 MG PO QHS, (Reported) Diclofenac Epolamine (Flector) 1.3% Patch, 1 PATCH TOP BID Gabapentin (Gabapentin) 400 Mg Capsule, 400 MG PO TID Losartan Potassium (Losartan Potassium) 50 Mg Tablet, 50 MG PO DAILY, (Reported) AT RECENT DISCHARGE, THIS RX WAS CHANGED TO 100MG DAILY. HOWEVER, PHARMACY COULD NOT FILL THIS DUE TO INSURANCE PURPOSES SINCE HE HAD JUST GOTTEN 50MG FILLED. HE HAS BEEN TAKING 50MG AT HOME SINCE DISCHARGE Metformin HCl (Metformin HCl) 500 Mg Tablet, 1,000 MG PO BIDWM, (Reported) WITH BREAKFAST AND DINNER Methylprednisolone (Medrol) 4 Mg Tablet, 4 MG PO QID Naproxen (Naproxen) 500 Mg Tablet, 500 MG PO BID, (Reported) Sitagliptin Phosphate (Januvia) 100 Mg Tablet, 100 MG PO DAILY, (Reported) Tizanidine HCl (Tizanidine HCl) 4 Mg Tablet, 4 MG PO TID Scheduled PRN Oxycodone HCl/Acetaminophen (Oxycodone-Acetaminophen 5-325) 1 Each Tablet, 2 TAB PO Q8H PRN for PAIN, (Reported) Allergies Coded Allergies: No Known Drug Allergies (Verified Allergy, Unknown, 12/17/18) LEENA SHAY MD December 27, 2018 17:12
== END 2018-12-27 16:21 | disposition home or self-care (01) | DRG 347 ==
LOC: M ED 12:56 → EDBD 12:56 → M ED INP 15:27 → M MSPAV 17:22
PROVIDERS: ADMIT Internal Medicine Nephrology; ATTEND Hospitalist
DX: M51.26 Other intervertebral disc displacement, lumbar region (principal); I10 Essential (primary) hypertension; E11.9 Type 2 diabetes mellitus without complications; Z79.82 Long term (current) use of aspirin; Z79.899 Other long term (current) drug therapy; E78.5 Hyperlipidemia, unspecified

== ENCOUNTER → 2019-02-24 | Outpatient (CLI) | payer BC, OTHER ==
[~2019-02-24] MED LIST changes: +DICL13PA TOP; +GABA-845 PO; +MEDR4TAB PO; +OXYC1TAB23 PO; +TIZA2TAB4 PO
--- NOTE | 2019-02-25 23:54 | ECWPNPC ---
PATIENT NAME: RAKEL TRACEY : 1955 GENDER: MALE VISIT DATE: 02/24/2019 DISCHARGE DATE: 02/24/19 0935 VISIT LOCKED DATE TIME: PHYSICIAN: CHITO TALBOT RESOURCE: CHITO TALBOT REASON FOR APPOINTMENT 1. MEDS HISTORY OF PRESENT ILLNESS HISTORY OF PRESENT ILLNESS: PAIN THE PATIENT DESCRIBES THE PAIN... 64 YEAR OLD MALE IN FOR CHRONIC PAIN FOLLOW UP. HE RECEIVED AN EPIDURAL IN DECEMBER AND FEELS IT DID NOT HELP BUT HE IS INTERESTED IN TRYING IT AGAIN HE WAS EXPERIENCING SEVERE ACUTE PAIN AT THE TIME. HE CURRENTLY RATES HIS PAIN AT AN 8/10. FALL RISK SCREENING: SCREENING :NO FALLS REPORTED IN THE LAST YEAR CURRENT MEDICATIONS TAKING METFORMIN HCL ER 500 MG TABLET EXTENDED RELEASE 24 HOUR 2 TABLET WITH EVENING MEAL ORALLY BID TAKING ASPIR-81 81 MG TABLET DELAYED RELEASE 1 TABLET ORALLY ONCE A DAY TAKING ATORVASTATIN CALCIUM 40 MG TABLET 1 TABLET ORALLY ONCE A DAY TAKING LOSARTAN POTASSIUM 100 MG TABLET 1 TABLET ORALLY ONCE A DAY TAKING CARVEDILOL 6.25 MG TABLET ORALLY TWICE DAILY TAKING TIZANIDINE HCL 4 MG TABLET 1 TABLET NEEDED ORALLY THREE TIMES A DAY TAKING JANUVIA 100 MG TABLET 1 TABLET ORALLY ONCE A DAY TAKING GABAPENTIN 400 MG CAPSULE DIRECTED ORALLY 5 TIME A DAY NOT-TAKING PERCOCET 5-325 MG TABLET 1 TABLET NEEDED ORALLY EVERY 6 HRS MEDICATION LIST REVIEWED AND RECONCILED WITH THE PATIENT PAST MEDICAL HISTORY DIABETES MELLITUS BASAL 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 SURGICAL HISTORY CATARACT LBP AND RIGHT LEG PAIN 2018 FAMILY HISTORY FATHER: MOTHER: SIBLINGS: ALIVE SON(S): ALIVE DAUGHTER(S): ALIVE 6 BROTHER(S) , 4 SISTER(S) - HEALTHY. 1 SON(S) , 2 DAUGHTER(S) - HEALTHY. DENIES ANY FAMILY HX OR PANCREATIC CANCER .MOTHER COLON CANCER , FATHER HEART DISEASE. SOCIAL HISTORY GENERAL: TOBACCO USE ARE YOU A:NONSMOKER OTHERS AT HOME: SPOUSE. HOUSING: OWNS HOME. EDUCATION LEVEL OF EDUCATION:HIGH SCHOOL DIET: NO CONCENTRATED SWEETS.. LANGUAGE LANGUAGES SPOKEN:FAROESE DOMESTIC VIOLENCE DO YOU FEEL SAFE IN YOUR ENVIRONMENT?YES RECREATIONAL DRUG USE DRUG USE?NO EXERCISE: WALKS VERY ACTIVE BUT NO REGUALR EXERCISE. PAIN CLINIC PFS, CLERGY, PUBLIC HEALTH REFERRALS PFS REFERRAL NEEDED?NO CLERGY REFERRAL NEEDED?NO PUBLIC HEALTH REFERRAL NEEDED?NO WAS THE PROVIDER NOTIFIED OF ANY PERTINENT INFO?NO HAS THE PATIENT BEEN EDUCATED REGARDING HIS/HER PLAN OF CARE?YES HAS THE PATIENT BEEN EDUCATED REGARDING PAIN, THE RISK FOR PAIN, THE IMPORTANCE OF EFFECTIVE PAIN MANAGEMENT, AND THE PAIN ASSESSMENT PROCESS?YES LATEX QUESTIONNAIRE LATEX ALLERGY : HAVE YOU EVER DEVELOPED ANY TYPE OF REACTION AFTER HANDLING LATEX PRODUCTS SUCH RUBBER GLOVES, CONDOMS, DIAPHRAGMS, BALLOONS, SOCKS, OR UNDERWEAR?NO LATEX ALLERGY : HAVE YOU EVER DEVELOPED ANY TYPE OF REACTION DURING OR AFTER DENTAL APPOINTMENT, VAGINAL/RECTAL EXAMINATION, SURGICAL PROCEDURE, OR ANY OTHER EXPOSURE?NO LATEX RISK : HAVE YOU EVER HAD ANY DIFFICULTY BREATHING OR HIVES AFTER EATING OR HANDLING ANY FRUITS, OR VEGETABLES; SUCH KIWI, BANANAS, STONE FRUITS, OR CHESTNUTSNO LATEX RISK : DO YOU HAVE A PREVIOUS PERSONAL HISTORY OF MORE THAN NINE SURGERIES, SPINA BIFIDA, OR REPEATED CATHERIZATIONS? NO LATEX RISK : ARE YOU FREQUENTLY EXPOSED TO LATEX PRODUCTS IN YOUR OCCUPATION?NO DATE ASKED : 12/15/2018 CAFFEINE CAFFEINE USE?NO ADVANCE DIRECTIVE ADVANCE DIRECTIVE DISCUSSED WITH PATIENT:YES PATIENT DECLINED HCP INFORMATION. EVANGELICAL EVANGELICAL NO PREFERENCE MARITAL STATUS: . ALCOHOL SCREENING DID YOU HAVE A DRINK CONTAINING ALCOHOL IN THE PAST YEAR?YES POINTS1 INTERPRETATIONNEGATIVE HOW OFTEN DID YOU HAVE A DRINK CONTAINING ALCOHOL IN THE PAST YEAR?MONTHLY OR LESS (1 POINT) HOW MANY DRINKS DID YOU HAVE ON A TYPICAL DAY WHEN YOU WERE DRINKING IN THE PAST YEAR?1 OR 2 (0 POINTS) HOW OFTEN DID YOU HAVE SIX OR MORE DRINKS ON ONE OCCASION IN THE PAST YEAR?NEVER (0 POINTS) OCCUPATION: [employer]. REVIEWED WITH PATIENT 12/15/18 4816 . HOSPITALIZATION/MAJOR DIAGNOSTIC PROCEDURE KIDNEY STONE 1984 REVIEW OF SYSTEMS REVIEWED BY: PROVIDER: RONALD TALBOT ACCOUNTING CLERK-C . CONSTITUTIONAL: ANY CHANGE IN YOUR MEDICAL CONDITION? NO . CHILLS NO . FEVER NO . INFECTION: DO YOU HAVE NEW INFECTIONS? NO . DO YOU HAVE HISTORY OF MRSA? NO . MUSCULOSKELETAL: ANY NEW PATTERNS OF PAIN OR NUMBNESS? NO . GASTROENTEROLOGY: ANY NEW CHANGE IN BOWEL CONTROL? NO . GENITOURINARY: ANY NEW CHANGE IN BLADDER CONTROL? NO . IS THERE A CHANCE YOU COULD BE ? NO . HEMATOLOGY/LYMPH: DO YOU TAKE ANY BLOOD THINNERS? (FOR EXAMPLE- COUMADIN, PLAVIX, AGGRENOX, PLATEL, PRADAXA, OR XARELTO) NO . WHEN WAS YOUR LAST DOSE? DATE: TIME: . NEUROLOGY: HAVE YOU FALLEN IN THE PAST 12 MONTHS? NO . ANY NEW EXTREMITY NUMBNESS OR WEAKNESS? NO . CARDIOLOGY: DO YOU HAVE A PACEMAKER OR DEFIBRILLATOR? NO . RESPIRATORY: HAVE YOU BEEN SICK IN THE PAST WEEK? NO . FEVER NO . FLU LIKE SYMPTOMS? NO . COUGH NO . INTEGUMENTARY: DO YOU HAVE ANY RASHES OR OPEN SORES? NO . ALLERGIC/IMMUNO: ARE YOU ALLERGIC TO IV DYE? NO . ANY NEW ALLERGIES? NO . PSYCHIATRIC: DO YOU HAVE THOUGHTS OF HURTING YOURSELF OR SOMEONE ELSE? NO . ARE YOU ABUSED, NEGLECTED, OR IN AN UNSAFE ENVIRONMENT? NO . ENDOCRINOLOGY: ARE YOU DIABETIC? YES . OTHER: DO YOU NEED ANY PRESCRIPTIONS? NO . IF YES, PLEASE LIST: ____ . ANY NEW PROBLEMS WITH YOUR MEDICATIONS? NO . WHEN DID YOU LAST EAT? ____ . WHEN DID YOU LAST DRINK? ____ . WHAT DID YOU LAST DRINK? ____ . NAME OF PERSON DRIVING YOU HOME? ____ . DO YOU HAVE ANY OTHER QUESTIONS OR CONCERNS NO . VITAL SIGNS WT 259.8 LBS, HT 75 IN, BMI 32.47 INDEX, BP 134/77 MM HG, HR 83 /MIN, RR 18 /MIN, TEMP 97.4 F, OXYGEN SAT % 97%, NA INITIALS SC 08:48, REVIEWED BY: KG. EXAMINATION GENERAL EXAMINATION: GENERALNO ACUTE DISTRESS, WELL NOURISHED AND HYDRATED. PSYCHAPPROPRIATE MOOD AND AFFECT . LUNGS:CLEAR TO AUSCULTATION BILATERALLY, NO WHEEZES, RHONCHI, RALES. HEART:NO MURMURS, REGULAR RATE AND RHYTHM. BACK: DENIES POINT TENDERNESS ALONG THE SPINE, SKIN SHOWS NO ERYTHEMA, ECCHYMOSIS, INCREASED WARMTH OR SKIN ERUPTIONS. NEGATIVE SLR AND PATRICKS TEST.. ASSESSMENTS INTERVERTEBRAL DISC DISORDER WITH RADICULOPATHY OF LUMBAR REGION - M51.16 (PRIMARY) TREATMENT INTERVERTEBRAL DISC DISORDER WITH RADICULOPATHY OF LUMBAR REGION NOTES: EPIDURAL L4-L5, L5-S1. CLINICAL NOTES: 64 YEAR OLD MALE IN FOR CHRONIC PAIN FOLLOW UP. GIVEN PRESENTING SYMPTOMS AND RESULTS OF PHYSICAL EXAMINATINO RECOMMENDED L4-L5, L5-S1 EPIDURAL WITH FOLLOW UP POST PROCEDURE. PATIENT HAS EXPRESSED UNDERSTANDING OF AND WAS IN AGREEMENT WITH TX PLAN. GIVEN TIME TO ASK QUESTIONS AND EXPRESS CONCERNS. , ISTOP REGISTRY REVIEWED AND DEMONSTRATES COMPLLIANCE. (REF # [id number] ) BRINGS IN MEDICATIONS WHICH IS APPROPRIATE FOR WHAT WAS DISPENSED. RECENT URINE TOXICOLOGY REVIEWED. NO UNAUTHORIZED MEDICATIONS. NO ILLICIT SUBSTANCES AND PRESCRIBED MEDICATIONS WERE PRESENT. PROCEDURE CODES FA211 ESTABILISHED PATIENT [facility] CHARGE DISPOSITION & COMMUNICATION FOLLOW UP FOLLOW UP POST PROCEDURE (REASON: EPIDURAL L4-L5, L5-S1) ELECTRONICALLY SIGNED BY TONG CHADWICK ON 02/25/2019 AT 09:58 AM EDT DISCLAIMER : THIS IS A VISIT SUMMARY EXTRACTED FROM THE [employer] CHART. IT IS NOT A COPY OF THE [employer] PROGRESS NOTE. FELISHAD
== END ==
LOC: M PAIN 08:45
PROVIDERS: ATTEND Family Medicine
DX: M51.16 Intervertebral disc disorders with radiculopathy, lumbar region (principal); E11.9 Type 2 diabetes mellitus without complications; I10 Essential (primary) hypertension; Z87.442 Personal history of urinary calculi; Z85.828 Personal history of other malignant neoplasm of skin; Z79.84 Long term (current) use of oral hypoglycemic drugs; Z79.82 Long term (current) use of aspirin; Z79.899 Other long term (current) drug therapy

== ENCOUNTER → 2019-03-29 | Outpatient (CLI) | payer BC, OTHER ==
[~2019-03-29] MED LIST changes: +ISOVUE-M 200 41% 20ML VIAL (Q9966) As Ordered ONE; +LIDOCAINE 1% SDV INJ 30 ML VIAL As Ordered ONE; +diazePAM 5 MG TAB As Ordered ONE; +methylPREDNISolone SUSP 40 MG/ML (DEPO-medrol) VIAL (J1030) As Ordered ONE; +oxyCODONE 5MG TAB As Ordered ONE
--- NOTE | 2019-03-29 19:29 | REP ---
C-ARM VIEWS LUMBAR SPINE: CLINICAL HISTORY: Pain. Two C-Arm views lumbar spine performed during epidural injection performed by Dr. Harrell. Needle is seen in the lower lumbar region. 7 seconds fluoroscopy time utilized. Electronically Signed by Esau Trujillo MD 03/30/2019 02:31 P
--- NOTE | 2019-04-01 00:20 | ECWPNPC ---
PATIENT NAME: RAKEL TRACEY : 1955 GENDER: MALE VISIT DATE: 03/29/2019 DISCHARGE DATE: 03/29/19 1615 VISIT LOCKED DATE TIME: PHYSICIAN: MARLENY PICHARDO MD RESOURCE: MARLENY PICHARDO MD REASON FOR APPOINTMENT 1. EPIDURAL L4-L5 HISTORY OF PRESENT ILLNESS HISTORY OF PRESENT ILLNESS: PAIN THE PATIENT DESCRIBES THE PAIN... FALL RISK SCREENING: SCREENING :NO FALLS REPORTED IN THE LAST YEAR CURRENT MEDICATIONS TAKING METFORMIN HCL ER 500 MG TABLET EXTENDED RELEASE 24 HOUR 2 TABLET WITH EVENING MEAL ORALLY BID, NOTES: 03/28/19 TAKING ASPIR-81 81 MG TABLET DELAYED RELEASE 1 TABLET ORALLY ONCE A DAY TAKING ATORVASTATIN CALCIUM 40 MG TABLET 1 TABLET ORALLY ONCE A DAY TAKING LOSARTAN POTASSIUM 100 MG TABLET 1 TABLET ORALLY ONCE A DAY TAKING CARVEDILOL 6.25 MG TABLET ORALLY TWICE DAILY TAKING TIZANIDINE HCL 4 MG TABLET 1 TABLET NEEDED ORALLY THREE TIMES A DAY TAKING JANUVIA 100 MG TABLET 1 TABLET ORALLY ONCE A DAY, NOTES: 03/29/19 0530 TAKING GABAPENTIN 400 MG CAPSULE DIRECTED ORALLY 5 TIME A DAY NOT-TAKING PERCOCET 5-325 MG TABLET 1 TABLET NEEDED ORALLY EVERY 6 HRS MEDICATION LIST REVIEWED AND RECONCILED WITH THE PATIENT PAST MEDICAL HISTORY DIABETES MELLITUS BASAL 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 SURGICAL HISTORY CATARACT LBP AND RIGHT LEG PAIN 2018 FAMILY HISTORY FATHER: MOTHER: SIBLINGS: ALIVE SON(S): ALIVE DAUGHTER(S): ALIVE 6 BROTHER(S) , 4 SISTER(S) - HEALTHY. 1 SON(S) , 2 DAUGHTER(S) - HEALTHY. DENIES ANY FAMILY HX OR PANCREATIC CANCER .MOTHER COLON CANCER , FATHER HEART DISEASE. SOCIAL HISTORY GENERAL: TOBACCO USE ARE YOU A:NONSMOKER OTHERS AT HOME: SPOUSE. HOUSING: OWNS HOME. EDUCATION LEVEL OF EDUCATION:HIGH SCHOOL DIET: NO CONCENTRATED SWEETS.. LANGUAGE LANGUAGES SPOKEN:PORTUGUESE DOMESTIC VIOLENCE DO YOU FEEL SAFE IN YOUR ENVIRONMENT?YES RECREATIONAL DRUG USE DRUG USE?NO EXERCISE: WALKS VERY ACTIVE BUT NO REGUALR EXERCISE. LEARNING BARRIERS / SPECIAL NEEDS BARRIERS TO LEARNING?NO HEARING IMPAIRED?NO VISION IMPAIRED?NO COGNITIVELY IMPAIRED?NO READINESS TO LEARN?YES LEARNING PREFERENCES?NO LEARNING CAPABILITIES PRESENT?YES EMOTIONAL BARRIERS?NO SPECIAL DEVICES?NO ELEMENTARY ESL TEACHER NEEDED?NO PAIN CLINIC PFS, CLERGY, PUBLIC HEALTH REFERRALS PFS REFERRAL NEEDED?NO CLERGY REFERRAL NEEDED?NO PUBLIC HEALTH REFERRAL NEEDED?NO WAS THE PROVIDER NOTIFIED OF ANY PERTINENT INFO? N/A HAS THE PATIENT BEEN EDUCATED REGARDING HIS/HER PLAN OF CARE?YES HAS THE PATIENT BEEN EDUCATED REGARDING PAIN, THE RISK FOR PAIN, THE IMPORTANCE OF EFFECTIVE PAIN MANAGEMENT, AND THE PAIN ASSESSMENT PROCESS?YES LATEX QUESTIONNAIRE LATEX ALLERGY : HAVE YOU EVER DEVELOPED ANY TYPE OF REACTION AFTER HANDLING LATEX PRODUCTS SUCH RUBBER GLOVES, CONDOMS, DIAPHRAGMS, BALLOONS, SOCKS, OR UNDERWEAR?NO LATEX ALLERGY : HAVE YOU EVER DEVELOPED ANY TYPE OF REACTION DURING OR AFTER DENTAL APPOINTMENT, VAGINAL/RECTAL EXAMINATION, SURGICAL PROCEDURE, OR ANY OTHER EXPOSURE?NO LATEX RISK : HAVE YOU EVER HAD ANY DIFFICULTY BREATHING OR HIVES AFTER EATING OR HANDLING ANY FRUITS, OR VEGETABLES; SUCH KIWI, BANANAS, STONE FRUITS, OR CHESTNUTSNO LATEX RISK : DO YOU HAVE A PREVIOUS PERSONAL HISTORY OF MORE THAN NINE SURGERIES, SPINA BIFIDA, OR REPEATED CATHERIZATIONS? NO LATEX RISK : ARE YOU FREQUENTLY EXPOSED TO LATEX PRODUCTS IN YOUR OCCUPATION?NO DATE ASKED : 03/29/2019 CAFFEINE CAFFEINE USE?NO ADVANCE DIRECTIVE ADVANCE DIRECTIVE DISCUSSED WITH PATIENT:YES 03/29/19 PT DOES NOT HAVE ANY ADVANCED DIRECTIVES AND HE DECLINES INFORMATION ON HCP AT THIS TIME. AD YARSANISM YARSANISM NO PREFERENCE MARITAL STATUS: . ALCOHOL SCREENING DID YOU HAVE A DRINK CONTAINING ALCOHOL IN THE PAST YEAR?YES POINTS1 INTERPRETATIONNEGATIVE HOW OFTEN DID YOU HAVE A DRINK CONTAINING ALCOHOL IN THE PAST YEAR?MONTHLY OR LESS (1 POINT) HOW MANY DRINKS DID YOU HAVE ON A TYPICAL DAY WHEN YOU WERE DRINKING IN THE PAST YEAR?1 OR 2 (0 POINTS) HOW OFTEN DID YOU HAVE SIX OR MORE DRINKS ON ONE OCCASION IN THE PAST YEAR?NEVER (0 POINTS) OCCUPATION: [employer]. REVIEWED WITH PATIENT 12/15/18 8511 JS. HOSPITALIZATION/MAJOR DIAGNOSTIC PROCEDURE KIDNEY STONE 1983 REVIEW OF SYSTEMS REVIEWED BY: PROVIDER: . CONSTITUTIONAL: ANY CHANGE IN YOUR MEDICAL CONDITION? NO . CHILLS NO . FEVER NO . INFECTION: DO YOU HAVE NEW INFECTIONS? NO . DO YOU HAVE HISTORY OF MRSA? NO . MUSCULOSKELETAL: ANY NEW PATTERNS OF PAIN OR NUMBNESS? NO . GASTROENTEROLOGY: ANY NEW CHANGE IN BOWEL CONTROL? NO . GENITOURINARY: ANY NEW CHANGE IN BLADDER CONTROL? NO . IS THERE A CHANCE YOU COULD BE ? NO . HEMATOLOGY/LYMPH: DO YOU TAKE ANY BLOOD THINNERS? (FOR EXAMPLE- COUMADIN, PLAVIX, AGGRENOX, PLATEL, PRADAXA, OR XARELTO) NO . WHEN WAS YOUR LAST DOSE? DATE: TIME: . NEUROLOGY: HAVE YOU FALLEN IN THE PAST 12 MONTHS? YES, PRIOR TO LAST VISIT . ANY NEW EXTREMITY NUMBNESS OR WEAKNESS? YES, RIGHT LEG WEAKNESS . CARDIOLOGY: DO YOU HAVE A PACEMAKER OR DEFIBRILLATOR? NO . RESPIRATORY: HAVE YOU BEEN SICK IN THE PAST WEEK? NO . FEVER NO . FLU LIKE SYMPTOMS? NO . COUGH NO . INTEGUMENTARY: DO YOU HAVE ANY RASHES OR OPEN SORES? NO . ALLERGIC/IMMUNO: ARE YOU ALLERGIC TO IV DYE? NO . ANY NEW ALLERGIES? NO . PSYCHIATRIC: DO YOU HAVE THOUGHTS OF HURTING YOURSELF OR SOMEONE ELSE? NO . ARE YOU ABUSED, NEGLECTED, OR IN AN UNSAFE ENVIRONMENT? NO . ENDOCRINOLOGY: ARE YOU DIABETIC? YES . OTHER: DO YOU NEED ANY PRESCRIPTIONS? NO . IF YES, PLEASE LIST: ____ . ANY NEW PROBLEMS WITH YOUR MEDICATIONS? NO . WHEN DID YOU LAST EAT? 03/29/191829 . WHEN DID YOU LAST DRINK? 03/29/19 0645 . WHAT DID YOU LAST DRINK? WATER . NAME OF PERSON DRIVING YOU HOME? NELLIE . DO YOU HAVE ANY OTHER QUESTIONS OR CONCERNS NO . VITAL SIGNS WT 259.6 LBS, HT 75 IN, BMI 32.44 INDEX, BP 142/70 MM HG, HR 62 /MIN, RR 18 /MIN, TEMP 98.3 F, OXYGEN SAT % 96%, NA INITIALS SC 13:37, REVIEWED BY: EM. ASSESSMENTS INTERVERTEBRAL DISC DISORDER WITH RADICULOPATHY OF LUMBAR REGION - M51.16 (PRIMARY) TREATMENT INTERVERTEBRAL DISC DISORDER WITH RADICULOPATHY OF LUMBAR REGION [facility] FLUORO GUIDE SPINE INJECTION (PAIN)[id number] PROCEDURES PRE PROCEDURE DIAGNOSIS LUMBAR DISC DISORDER WITH RADICULOPATHY POST PROCEDURE DIAGNOSIS LUMBAR DISC DISORDER WITH RADICULOPATHY PROCEDURE LUMBAR EPIDURAL STEROID INJECTION UNDER FLUOROSCOPIC GUIDANCE SURGEON DR. MARLENY PICHARDO SAFETY COUNCIL DIRECTOR NONE ANESTHESIA LOCAL PRE PROCEDURE NOTE THE PATIENT HAS A HISTORY OF CHRONIC LOW BACK PAIN. I EVALUATED THE PATIENT AND REVIEWED THE CHART. I WENT OVER THE RISKS, ALTERNATIVES, AND BENEFITS ASSOCIATED WITH THIS PROCEDURE. THE PATIENT WOULD LIKE TO PROCEED AND GIVE CONSENT TO PERFORMED THE PROCEDURE. THE PATIENT DENIES UNEXPLAINABLE WEIGHT LOSS, FEVER, CHILLS, OR NEW CHANGES IN URINARY OR BOWEL CONTROL. DESCRIPTION OF PROCEDURE THE PATIENT WAS BROUGHT TO THE PROCEDURE ROOM AND PLACED IN THE PRONE POSITION. THE LUMBOSACRAL AREA WAS CLEANED WITH BETADINE SOLUTION AND DRAPED ASEPTICALLY. THE PROCEDURE WAS DONE UNDER STERILE CONDITIONS. I CHECKED LATERALITY AND THE LEVEL WHERE THE PROCEDURE WAS GOING TO BE PERFORMED WITH THE PATIENT AND THE SUPPORTING STAFF AT THE MOMENT OF THE TIME OUT IN THE PROCEDURE ROOM. UNDER FLUOROSCOPIC GUIDANCE, THE TARGET POINT WAS SELECTED AT THE INTERLAMINAR LEVEL OF L4-L5. LIDOCAINE WAS USED TO NUMB THE SKIN AND THE SUBCUTANEOUS TISSUE BELOW IT. EPIDURAL TUOHY NEEDLE, 17-GAUGE, WAS ADVANCED UNDER FLUOROSCOPIC GUIDANCE AND FOLLOWING PATIENT FEEDBACK UNTIL THE EPIDURAL SPACE WAS REACHED, 7 CM DEEP INTO THE SKIN BY THE LOSS OF RESISTANCE TECHNIQUE. ISOVUE M-200 CONTRAST WAS INJECTED SHOWING ADEQUATE SPREAD OF THE DYE. THEN, A SOLUTION OF 3 ML OF NORMAL SALINE WITH DEPO-MEDROL 60 MG WAS INJECTED SLOWLY FOLLOWING PATIENT FEEDBACK. THERE WAS NO EVIDENCE OF BLOOD, PARESTHESIA OR CEREBROSPINAL FLUID DURING THE PROCEDURE. THE PATIENT WAS SENT TO THE RECOVERY ROOM. THE PATIENT WAS MOVING THE EXTREMITIES AND DOING WELL. THERE WAS NO COMPLICATION DURING THE PROCEDURE. FLUOROSCOPY TIME WAS 7 SECONDS. POST PROCEDURE NOTE THE PATIENT WILL BE SEEN IN A FOLLOW UP IN THE NEXT FEW WEEKS. INSTRUCTIONS WERE GIVEN, QUESTIONS WERE ANSWERED, AND THE PATIENT EXPRESSED UNDERSTANDING AND AGREES WITH THE PLAN. I, KHADRA MORENO, DOCUMENTED THE ABOVE INFORMATION ACTING A SCRIBE FOR DR. PICHARDO. I HAVE REVIEWED THE ABOVE DOCUMENT, WRITTEN BY KHADRA THOMAS AND I VERIFY THAT IT IS ACCURATE. PROCEDURE CODES 38025 LUMBAR/SACRAL W/ IMAGING [id number] RADXPS IN END [id number] PXD DISPOSITION & COMMUNICATION FOLLOW UP 2 WEEKS ELECTRONICALLY SIGNED BY MARLENY PICHARDO MD, MD ON 03/31/2019 AT 05:33 PM EDT DISCLAIMER : THIS IS A VISIT SUMMARY EXTRACTED FROM THE [employer] CHART. IT IS NOT A COPY OF THE [employer] PROGRESS NOTE. MTDD
== END ==
LOC: M PAIN 13:30
PROVIDERS: ATTEND Anesthesiology
DX: G89.29 Other chronic pain (principal); M51.16 Intervertebral disc disorders with radiculopathy, lumbar region; E11.9 Type 2 diabetes mellitus without complications; I10 Essential (primary) hypertension; Z79.82 Long term (current) use of aspirin; Z79.84 Long term (current) use of oral hypoglycemic drugs; Z79.899 Other long term (current) drug therapy
CPT/HCPCS: 62323; J1030; Q9966

== ENCOUNTER → 2019-05-02 | Outpatient (REF) | payer OTHER ==
[~2019-05-02] MED LIST changes: -ISOVUE-M 200 41% 20ML VIAL (Q9966) As Ordered ONE; -LIDOCAINE 1% SDV INJ 30 ML VIAL As Ordered ONE; -diazePAM 5 MG TAB As Ordered ONE; -methylPREDNISolone SUSP 40 MG/ML (DEPO-medrol) VIAL (J1030) As Ordered ONE; -oxyCODONE 5MG TAB As Ordered ONE
== END ==
LOC: M SFHCPLAZ 14:01
PROVIDERS: ATTEND Dermatology
DX: D49.2 Neoplasm of unspecified behavior of bone, soft tissue, and skin (principal)

== ENCOUNTER → 2021-07-22 | Outpatient (REF) | payer MEDICARE, OTHER ==
[~2021-07-22] MED LIST changes: +GABA-282 PO; +GABA-283 PO; -GABA-843 PO; -GABA-845 PO; -HYDR-2808 PO; +HYDR-4429 PO; +TIZA1TAB12 PO; -TIZA2TAB4 PO
== END ==
LOC: M LAB REF 20:22
PROVIDERS: ATTEND Physician Assistant
DX: J06.9 Acute upper respiratory infection, unspecified (principal)

== ENCOUNTER → 2022-08-28 | Outpatient (REF) | payer MEDICARE, OTHER ==
[~2022-08-28] MED LIST changes: +LOSA50TA28 PO; -LOSA50TA88 PO; +TIZA10TA PO; -TIZA4TAB4 PO
== END ==
LOC: M SFHCDERM 16:03
PROVIDERS: ATTEND Physician Assistant
DX: D23.22 Other benign neoplasm of skin of left ear and external auricular canal (principal); L57.8 Other skin changes due to chronic exposure to nonionizing radiation

== ENCOUNTER → 2023-09-02 | Outpatient (REF) | payer MEDICARE, OTHER ==
[~2023-09-02] MED LIST changes: -GABA-283 PO; +GABA-284 PO
== END ==
LOC: M SFHCDERM 17:55
PROVIDERS: ATTEND Physician Assistant
DX: D23.20 Other benign neoplasm of skin of unspecified ear and external auricular canal (principal)

== ENCOUNTER → 2024-09-05 | Outpatient (REF) | payer MEDICARE, OTHER, BC ==
[~2024-09-05] MED LIST changes: +GABA-1172 PO; -GABA-282 PO
== END ==
LOC: M SFHCDERM 16:42
PROVIDERS: ATTEND Physician Assistant
DX: L28.1 Prurigo nodularis (principal)